=== PATIENT | female | born 1985 | race Caucasian/White ===

== ENCOUNTER 2019-11-12 05:31 | Outpatient (RCR) | payer OTHER ==
[~2019-11-12] VITALS: Ht 162.6 cm; Wt 88.2 kg
[~2019-11-12 05:31] MED LIST: ALPR0.25 PO
--- NOTE | 2019-11-12 09:26 | Progress Note-Pre Operative ---
Pre-Operative Progress Note H&P Reviewed The H&P was reviewed, patient examined and no changes noted. Date Seen by Provider: Nov 15, 2019 Date H&P Reviewed: Nov 15, 2019 Pre-Operative Diagnosis: uterovaginal prolapse/aileen ELIJAH CHEATHAM MD Nov 12, 2019 09:26
--- NOTE | 2019-11-12 09:27 | Progress Note-Post Operative ---
Post-Operative Progess Note Surgeon (s)/Sample Driller (s) Surgeon ELIJAH CHEATHAM MD Pre-Operative Diagnosis uterovaginal prolapse/aileen Post-Operative Diagnosis same Procedure & Operative Findings Date of Procedure 11/12/19 Procedure Performed/Findings TLH/BS/A&P rep with ent rep/(PVS and cysto by Dr. Corral) Anesthesia Type GETA Specimens/Packing Specimens Removed TLH/BS Packing: Kerlix in vagina ELIJAH CHEATHAM MD Nov 12, 2019 09:27
== END 2019-11-12 14:25 | disposition home or self-care (01) ==
LOC: PREOP 05:31
PROVIDERS: ATTEND Obstetrics & Gynecology
DX: Z01.818 Encounter for other preprocedural examination (principal); N39.3 Stress incontinence (female) (male); N92.0 Excessive and frequent menstruation with regular cycle; D64.9 Anemia, unspecified; Z20.828 Contact with and (suspected) exposure to other viral communicable diseases
CPT/HCPCS: 87635

== ENCOUNTER 2019-11-15 09:35 | Day surgery (SDC) | payer OTHER ==
[~2019-11-15] VITALS: Ht 162.6 cm; Wt 88.2 kg
[2019-11-15] VITALS (9 sets, daily range): BP systolic 107–124; BP diastolic 54–87
[2019-11-15] MEDS ORDERED: ceFAZolin INJECTION 1,000 MG in WATER (STERILE) FOR INJECTION 10 ML IV ONE (10:00)
[2019-11-15] MEDS: LACTATED RINGERS 1,000 ML IV PRN ×2 (10:12→14:15)
[2019-11-15 10:22] LABS: BASOPHILS % (AUTO) 0 % (0-10); EOSINOPHILS # (AUTO) 0.1 10^3/uL (0.0-0.3); EOSINOPHILS % (AUTO) 1 % (0-10); HEMATOCRIT 41 % (35-52); LYMPHOCYTES # (AUTO) 2.2 X 10^3 (1.0-4.0); LYMPHOCYTES % (AUTO) 24 % (12-44); MEAN CORPUSCULAR HEMOGLOBIN 30 PG (25-34); MEAN CORPUSCULAR HGB CONC 34 G/DL (32-36); MEAN CORPUSCULAR VOLUME 89 FL (80-99); MEAN PLATELET VOLUME 9.8 FL (7.4-10.4); MONOCYTES # (AUTO) 0.7 X 10^3 (0.0-1.0); MONOCYTES % (AUTO) 8 % (0-12); NEUTROPHILS # (AUTO) 6.2 X 10^3 (1.8-7.8); NEUTROPHILS % (AUTO) 67 % (42-75); PLATELET COUNT 288 10^3/uL (130-400); WHITE BLOOD COUNT 9.2 10^3/uL (4.3-11.0)
[2019-11-15] MEDS ORDERED: ROCURONIUM 10 MG/ML 5 ML SYRINGE IV ONE (10:26)
[2019-11-15] MEDS ORDERED: SEVOFLURANE (ULTANE) 15 ML INHAL SOLN ONE ×7 (10:26→14:43)
[2019-11-15] MEDS ORDERED: LIDOCAINE PF 2% 5 ML (XYLOCAINE) VIAL ONE (10:26)
[2019-11-15] MEDS ORDERED: proPOfol 200 MG/20 ML (DIPRIVAN) VIAL IV ONE (10:26)
[2019-11-15] MEDS ORDERED: ONDANSETRON 4 MG/2 ML (SDV) Z0FRAN ONE (10:26)
[2019-11-15] MEDS ORDERED: MIDAZOLAM 2 MG/2 ML (VERSED) VIAL ONE (10:27)
[2019-11-15] MEDS ORDERED: fentaNYL INJECTION 100 MCG/2 ML AMP ONE (10:27)
[2019-11-15] MEDS ORDERED: NEOSTIGMINE 3 MG/3 ML VIAL ONE ×6 (10:28→10:34)
[2019-11-15] MEDS ORDERED: GLYCOPYRROLATE 0.2 MG/ML (ROBINUL) 2 ML VIAL ONE (10:28)
[2019-11-15] MEDS ORDERED: CATHETER FLUSH 10 ML SYR IV PRN (10:30)
[2019-11-15] MEDS ORDERED: ESTRADIOL VAGINAL CREAM 42.5 GM (ESTRACE) VG ONE (10:51)
[2019-11-15] MEDS ORDERED: BUP/EPI 0.5% 1:200,000 (MARCAINE) 10ML VIAL IJ ONE (10:52)
--- NOTE | 2019-11-15 12:48 | Progress Note-Pre Operative ---
Pre-Operative Progress Note H&P Reviewed The H&P was reviewed, patient examined and no changes noted. Date Seen by Provider: Nov 15, 2019 Time Seen by Provider: 12:48 Date H&P Reviewed: Nov 15, 2019 Time H&P Reviewed: 12:48 Pre-Operative Diagnosis: BENEDICTO RAZO MD Nov 15, 2019 12:48
--- NOTE | 2019-11-15 12:49 | Progress Note-Post Operative ---
Post-Operative Progess Note Surgeon (s)/Insulation Cupola Operator (s) Surgeon BENEDICTO ABAD MD Insulation Cupola Operator: ELIJAH CHEATHAM M.D Pre-Operative Diagnosis JULI Post-Operative Diagnosis SAME Procedure & Operative Findings Date of Procedure 11/15/19 Procedure Performed/Findings PVS AND CYSTOSCOPY Anesthesia Type GENERAL Estimated Blood Loss Estimated blood loss (mL): NEGLIGIBLE Specimens/Packing Specimens Removed NONE Packing: NONE BENEDICTO ABAD MD Nov 15, 2019 12:49
--- NOTE | 2019-11-15 13:15 | Progress Note-Pre Operative ---
Pre-Operative Progress Note H&P Reviewed The H&P was reviewed, patient examined and no changes noted. Date Seen by Provider: Nov 15, 2019 Time Seen by Provider: 13:14 Date H&P Reviewed: Nov 15, 2019 Time H&P Reviewed: 13:14 Pre-Operative Diagnosis: uTEROVAGINAL PROLAPSE/JULI ELIJAH CHEATHAM MD Nov 15, 2019 13:15
[2019-11-15] MEDS ORDERED: D5 LR IV SOLUTION 1,000 ML IV SCH (13:16)
--- NOTE | 2019-11-15 13:16 | Progress Note-Post Operative ---
Post-Operative Progess Note Surgeon (s)/Cream Buyer (s) Surgeon ELIJAH CHEATHAM MD Cream Buyer: ISIDRO DOS SANTOS Pre-Operative Diagnosis UTEROVAGINAL PROLAPSE/JULI Post-Operative Diagnosis SAME Procedure & Operative Findings Date of Procedure 11/15/19 Procedure Performed/Findings TLH/BS/A&P REP WITH ENT REP AND PVS / CYSTO BY POLLO PARKER Anesthesia Type GETA Estimated Blood Loss Estimated blood loss (mL): 150 Specimens/Packing Specimens Removed tlh/bs Packing: ELIJAH Matta MD Nov 15, 2019 13:16
[2019-11-15] MEDS ORDERED: oxyCODONE/APAP 5/325MG (PERCOCET 5) TABLET PO PRN (13:30)
[2019-11-15] MEDS ORDERED: MEPERIDINE (DEMEROL) INJ 100 MG/ML IM PRN ×2 (13:30→15:30)
[2019-11-15] MEDS ORDERED: ONDANSETRON 4 MG/2 ML (SDV) Z0FRAN IVP PRN ×2 (13:30→15:30)
[2019-11-15] MEDS ORDERED: KETOROLAC 30 MG/ML VIAL IVP SCH (13:30)
[2019-11-15] MEDS ORDERED: BENZOCAINE/MENTHOL (DERMOPLAST) 60 ML CAN TP PRN ×2 (13:30→15:30)
[2019-11-15] MEDS ORDERED: PROMETHAZINE INJ 25 MG/ML (PHENERGAN) AMP IM PRN ×2 (13:30→15:30)
[2019-11-15] MEDS ORDERED: ESTROGENS CONJ INJECTION 25 MG in WATER (STERILE) FOR INJECTION 5 ML IV ONE ×2 (13:30→15:30)
[2019-11-15] MEDS ORDERED: HYDROmorphone 2 MG/ML VIAL (DILAUDID) ONE (14:20)
--- NOTE | 2019-11-15 15:38 | OPERATIVE REPORT ---
DATE OF SERVICE: 11/15/2019 PREOPERATIVE DIAGNOSIS: Uterovaginal prolapse. POSTOPERATIVE DIAGNOSIS: Uterovaginal prolapse. OPERATIVE PROCEDURE: Total laparoscopic hysterectomy with bilateral salpingectomies as well as anterior and posterior vaginal repairs with enterocele repair and with Dr. Corral performing a pubovaginal sling and cystoscopy. OPERATIVE DESCRIPTION: With the patient in supine position under satisfactory general anesthesia, she was repositioned in dorsal lithotomy position in the [facility] and prepped and draped in the usual fashion for abdominal and vaginal surgery. Urinary bladder was drained via Munoz catheter. A weighted speculum placed in posterior fornix of vagina, cervix exposed and grasped anteriorly with single tooth tenaculum. Uterus was sounded to 9.5 cm with uterine sound. Cervix was then serially dilated with Harry dilators to accommodate a ThinkLink two manipulator, which was placed using a 6 mm x 8 cm uterine probe and a 30 mm colpotomy ring. Sutures of #1 Vicryl placed at 3 and 9 o'clock position of the cervix to affix the uterus to the manipulator. The patient brought in low dorsal lithotomy position and the abdomen exposed. A 12 mm incision was made 9 cm superior to the umbilicus in the midline. Veress needle was placed through the incision into the abdominal cavity. Correct placement confirmed with water drop test. The abdomen was insufflated with 2.4 liters of carbon dioxide. The Veress needle was removed and a 12 mm Optiview laparoscopic port placed. Abdominal wall was transilluminated and 8 mm ports were placed 9 cm lateral to the umbilicus at a level approximately 4 cm superior to the umbilicus. The patient was placed in Trendelenburg allowing the bowel to spill out of the pelvis and then the da Juan J column was advanced on the patient and docked and operative instrument placed in right and left lateral ports and I retired to the da Juan J console. At the console using the vessel sealer on the right and a bipolar fenestrated grasper on the left, the pelvis was examined. Both ovaries were normal in appearance as were the fallopian tubes. The uterus had an atypical appearance, but it will be sent to pathology for permanent section. The appendix was identified. It was retrocecal, but appeared normal. The laparoscope was brought back to the pelvis. The right fallopian tube was grasped and elevated. The mesosalpinx was clamped, cauterized and divided using the vessel sealer. This continued across to the uteroovarian pedicle, which was clamped, cauterized and divided. Continue across the round ligament down the broad ligament onto the cardinal ligament. Same procedure performed on the left, allowing for removal of both fallopian tubes eventually with the uterus. With the anterior lower uterine segment peritoneum exposed, it was divided with monopolar audrey in place of the vessel sealer. The bladder was carefully dissected down off the lower uterine segment and then colpotomy incision was initiated at 12 o'clock position onto the colpotomy ring. The colpotomy ring was exposed circumferentially. It was completely exposed. The uterus with tubes still attached was extracted through the vagina. The vaginal cuff was now closed with a single suture of V-Loc barbed suture starting from the right angle and continuing across the vaginal cuff until the cuff was entirely closed, taking care to ensure inclusion of the uterine vessel pedicles bilaterally. With hemostasis complete and no abnormal pathology, both ovaries in situ and appeared normal. Both ureters had been seemed to before and during the procedure and again at this point, the procedure was terminated. The patient had the operative instruments were removed as were the ports. The abdomen was evacuated of insufflating gas in process of removing the ports. The skin incisions were stapled after closing the fascia at the supraumbilical incision with a [id number] suture of 2-0 Vicryl. The patient was brought into the dorsal lithotomy position for the anterior and posterior vaginal repairs. Weighted speculum placed in posterior fornix of vagina. The anterior wall was grasped with two Eve clamps. Incision was made in the midline. Then the incision was extended from approximately 1.5 cm of the urethra almost to the apex of the vagina. The vaginal wall was carefully dissected off of the bladder back to pubic rami bilaterally. Endopelvic fascia and bladder wall were then plicated with 2-0 Vicryl sutures, elevating the bladder and lengthening the urethra. Dr. Corral assumed care of the patient at this point and I remained to assist. Dr. Corral performed the pubovaginal sling and cystoscopy without event, which he will dictate and then I resumed care of the patient. With Dr. Corral portion completed and a Munoz catheter in the urinary bladder draining clear yellow urine, I resected the redundant anterior vaginal muscularis mucosa and closed the vaginal wall with a running locked suture of 3-0 Vicryl Rapide. Good reapproximation was achieved and good hemostasis was achieved. Posterior repair was then affected by placing Eve clamps on the perineum and hymenal ring at 5 and 7 o'clock position and inverted triangle of skin was removed from the perineal body and upright triangle from the posterior vaginal floor. The rectovaginal space was dissected to the apex of the vagina where it was explored for an enterocele there being a small and it was reduced and ligated with two 2-0 Vicryl pursestring sutures. The rectovaginal space was obliterated with additional sutures of 2-0 Vicryl. The perineal body was restored with additional sutures of 2-0 Vicryl and then the posterior vaginal muscularis mucosa was removed sharply. Vaginal wall was closed with a running locked suture of 3-0 Vicryl Rapide, that closure was continued down to the hymenal ring and back down to the apex of the defect on the perineal body then back up subcutaneous to the hymenal ring where the suture was tied. Digital rectal exam confirmed no stricture or stenosis of the rectum and no sutures into or through the rectal mucosa. Vagina was filled with Estrace vaginal cream and a pack of Kerlix gauze was placed. Hemostasis was complete. Sponge and needle counts were correct. Estimated blood loss was around 250 to 300 mL. The patient tolerated the procedure well and was uneventfully awakened from the general anesthesia and transferred to recovery room in stable condition. Job ID: [id number] DocumentID: [id number] Dictated Date: 11/15/2019 15:16:01 Pumper Hand Date: 11/15/2019 15:37:52 Dictated By: ELIJAH CHEATHAM MD
[2019-11-15] MEDS ORDERED: KETOROLAC 30 MG/ML VIAL ONE (15:40)
[2019-11-15] MEDS: KETOROLAC 30 MG/ML VIAL IVP SCH ×2 (15:45→21:25)
[2019-11-15] MEDS ORDERED: OXYC1TAB87 PO (15:46)
[2019-11-15] MEDS ORDERED: DCS100C PO (15:46)
[2019-11-15] MEDS ORDERED: IBUP-1780 PO (15:46)
--- NOTE | 2019-11-15 15:47 | Discharge Inst-Surgical ---
Discharge Inst-Surgical Depart Medication/Instructions New, Converted or Re-Newed RX: RX on Chart Consults/Follow Up Patient Instructions: DIRECTED Orders & Referrals Follow Up Appt: RTC ON MONDAY NOVEMBER 18, 2019 AT 930 AM FOR STAPLE REMOVAL Call to make follow up appt. for patient in 4 weeks. Activity: Rest for 24 hours, than as tolerated. Wound Care: May remove Band-Aid tomorrow. Replace as desired. Keep incisions clean and dry. Wash daily with soap and water. Please call in RX to patient pharmacy. Diet: As tolerated-Clear Liquids only if nauseated. Tomorrow, may shower or tub bathe as desired. No driving for 24 hours, no alcoholic beverages for 24 hours, and nothing per vagina (no tampons, douching, or intercourse) for 8 weeks. Patient to return to the clinic as soon as possible for: Temperature greater than 101F, Severe Pain, Foul discharge from incision or vagina, Excessive Bleeding (more than a period). Activity Activity as Tolerated: No Diet Discharge Diet: No Restrictions ELIJAH CHEATHAM MD Nov 15, 2019 15:47
--- NOTE | 2019-11-15 16:25 | NUR ---
SHER THOMPSON admitted to room 306, with an admitting diagnosis of postop hysterectomy, on 11-15-19 from recovery via cart, accompanied by staff.SHER THOMPSON introduced to surroundings, call light, bed controls, phone, TV, temperature control, lights, meal times, smoking policy, visitor policy, side rail policy, bathrooms and showers. Patient Rights given to patient in the handbook. SHER THOMPSON verbalizes understanding that [facility] is not responsible for the loss or damage to any personal effects or valuables that are kept in the patients posession during their hospitalization. The following Patient Care Plans were discussed with the patient: Discharge Planning, pain management, postop care. SHER THOMPSON verbalizes understanding of Interdisciplinary Patient Education. Patient and/or family were informed about the Rapid Response Team and its purpose.
[2019-11-15] MEDS ORDERED: MEPERIDINE (DEMEROL) INJ 100 MG/ML ONE (16:45)
[2019-11-15] MEDS ORDERED: PROMETHAZINE INJ 25 MG/ML (PHENERGAN) AMP ONE (16:45)
[2019-11-15] MEDS: D5 LR IV SOLUTION 1,000 ML IV SCH (16:56)
--- NOTE | 2019-11-15 19:23 | OPERATIVE REPORT ---
DATE OF SERVICE: 11/15/2019 PREOPERATIVE DIAGNOSIS: On my part, stress urinary incontinence. POSTOPERATIVE DIAGNOSIS: On my part, stress urinary incontinence. OPERATION PERFORMED: Pubovaginal sling and cystoscopy. SURGEON: Benedicto Abad MD ANESTHESIA: General. STATEMENT DISTRIBUTION CLERK: Huseyin Argueta MD COMPLICATIONS: None. DESCRIPTION OF PROCEDURE: After Dr. Argueta performed the first part of his surgery, I went ahead and inserted a Munoz catheter, draining clear urine. I passed the Solyx device on both sides using the described technique. The sling was sitting nicely under the mid urethra with no twisting, no tension. I removed the Munoz catheter to perform cystoscopy to confirm the integrity of the bladder, ureteral orifices and urethra with no foreign body and presence of the sling under the mid urethra. I left the bladder half full to perform a manual Valsalva maneuver that was negative. I reinserted the Munoz catheter and Dr. Argueta procedure was the rest of his surgery that he will dictate. Job ID: [id number] DocumentID: [id number] Dictated Date: 11/15/2019 14:48:15 Enrichment Specialist Date: 11/15/2019 19:22:34 Dictated By: BENEDICTO ABAD MD
[2019-11-15] MEDS: oxyCODONE/APAP 5/325MG (PERCOCET 5) TABLET PO PRN (21:25)
[2019-11-16 00:30] VITALS: BP 107/58
[2019-11-16] MEDS: D5 LR IV SOLUTION 1,000 ML IV SCH (00:40)
[2019-11-16 03:32] VITALS: BP 105/54
[2019-11-16] MEDS: KETOROLAC 30 MG/ML VIAL IVP SCH (03:34)
--- NOTE | 2019-11-16 06:20 | NUR ---
IV, CHEEK CATH, and vag packing removed at this time. Pt. up to bathroom with nurse assist. Pad and underwear put on. Unable to void at this time. Pt. tolerates well. Denies the need for pain meds at this time. Back to bed. SCD's put back on.
[2019-11-16 06:29] VITALS: BP 118/64
--- NOTE | 2019-11-16 08:25 | NUR ---
dr nation here for patient rounds and assessments. new orders received.
[2019-11-16 08:50] VITALS: BP 131/65
--- NOTE | 2019-11-16 08:51 | Progress Note ---
Standard Progress Note Progress Notes/Assess & Plan Date Seen by a Provider: Nov 16, 2019 Time Seen by a Provider: 08:49 Progress/Assessment & Plan This patient is without complaint. She is ambulating, tolerating oral intake, she has not voided yet, she does have good pain control. Vital Signs Date Time Temp Pulse Resp B/P (MAP) Pulse Ox O2 Delivery O2 Flow Rate FiO2 11/16/19 06:29 36.9 67 20 118/64 (82) 94 Room Air 11/16/19 03:32 36.9 91 18 105/54 (71) 94 Room Air 11/16/19 00:30 37.4 79 16 107/58 (74) 94 Nasal Cannula 1.00 11/15/19 21:38 95 Nasal Cannula 1.00 11/15/19 20:00 36.6 101 16 107/54 (71) 94 Nasal Cannula 2.00 11/15/19 18:00 Room Air 11/15/19 16:50 93 Nasal Cannula 2.00 11/15/19 16:25 36.4 88 16 114/60 (78) 93 Nasal Cannula 2.00 11/15/19 16:25 Nasal Cannula 2 11/15/19 16:17 18 119/72 (88) 100 Nasal Cannula 2 11/15/19 16:15 Nasal Cannula 2 11/15/19 16:08 36.2 21 123/75 (91) 97 Room Air 11/15/19 16:00 OxyMask 10 11/15/19 15:58 20 113/73 (86) 98 OxyMask 10 11/15/19 15:48 12 111/87 (95) 99 OxyMask 10 11/15/19 15:45 OxyMask 10 11/15/19 15:38 18 118/69 (85) 98 OxyMask 10 11/15/19 15:28 36.2 14 121/84 (96) 99 OxyMask 10 11/15/19 15:28 OxyMask 10 11/15/19 09:43 36.1 92 16 124/69 (87) 96 Room Air I & O 11/16/19 07:00 Intake Total 3860 ml Output Total 2075 ml Balance 1785 ml Vital signs are stable. Patient is afebrile. The abdomen is benign. Extremities show no clubbing or cyanosis. There is no Homans sign. Assessment and plan postoperative day number 1 doing well. Plan is for routine convalescence care. When patient demonstrates adequate bladder function she will be discharged home. Bladder is not adequately functioning management will depend on Dr. Knight's instruction Final Diagnosis Uterovaginal prolapse and stress urinary incontinence ELIJAH CHEATHAM MD Nov 16, 2019 08:50
[2019-11-16] MEDS ORDERED: DOCUSATE SODIUM 100 MG (COLACE) CAP PO SCH ×2 (09:00)
[2019-11-16] MEDS: oxyCODONE/APAP 5/325MG (PERCOCET 5) TABLET PO PRN (09:05)
--- NOTE | 2019-11-16 09:10 | NUR ---
spontaneous void of 310cc of vamshi colored urine, bladder scan at bedside by this RN. 104 cc of urine scanned in bladder.
--- NOTE | 2019-11-16 10:20 | NUR ---
dr lopez given patient update on urine output, pain management and vitals. reviewed bladder scan results. d/c precautions and followup time given to this RN by dr lopez.
--- NOTE | 2019-11-16 11:10 | NUR ---
SHER THOMPSON demonstrates understanding of discharge instructions and accurately returns instructions upon questioning. Copy of Post-Discharge Instructions and Medication Discharge Instructions given to . SHER THOMPSON is able to manage continuing needs after discharge. Patients belongings returned to patient. Skin dry and intact; no breakdown noted. Patient discharged from 3306-1 on 11-16-19 at 1110. SHER THOMPSON left floor via w/c, accompanied by staff and s/o.
[2019-11-16] MEDS ORDERED: IBUPROFEN 800 MG (MOTRIN) TAB PO SCH ×2 (15:30→18:00)
--- NOTE | 2019-11-17 10:22 | Anesthesia-General Post-Op ---
General Significant Intra-Op Events Notes late entry from 11/15 Patient Condition Mental Status/LOC: Same as Preop Cardiovascular: Satisfactory Nausea/Vomiting: Absent Respiratory: Satisfactory Pain: Controlled Complications: Absent Post Op Complications Complications None Follow Up Care/Instructions Patient Instructions None needed. Anesthesia/Patient Condition Patient Condition Patient is doing well, no complaints, stable vital signs, no apparent adverse anesthesia problems. No complications reported per nursing. MARY WHITLOCK CRNA Nov 17, 2019 10:22
== END 2019-11-16 11:10 | disposition home or self-care (01) ==
LOC: SDC 09:35 → EDSTATUS 12:00 → WS 16:22 → SDC 11-16 11:10
PROVIDERS: ATTEND Obstetrics & Gynecology
DX: N81.4 Uterovaginal prolapse, unspecified (principal); N80.0 Endometriosis of uterus; N39.3 Stress incontinence (female) (male); N72 Inflammatory disease of cervix uteri; N87.0 Mild cervical dysplasia; F41.9 Anxiety disorder, unspecified; Z79.899 Other long term (current) drug therapy; E66.9 Obesity, unspecified; Z68.33 Body mass index [BMI] 33.0-33.9, adult; Z11.2 Encounter for screening for other bacterial diseases
CPT/HCPCS: 57265; 57288; 58571; 84703; 85025; 86850; 86900; 86901; 87081; 88307; 94664; C1771; 36415

== ENCOUNTER 2020-03-11 16:32 | Inpatient (IN) | payer OTHER ==
[~2020-03-11] VITALS: Ht 162.5 cm; Wt 90.7 kg
[~2020-03-11 16:32] MED LIST changes: +DCS100C PO; +IBUP-1780 PO; +OXYC1TAB87 PO
[2020-03-11] MEDS ORDERED: ONDANSETRON 4 MG/2 ML (SDV) Z0FRAN ONE (16:43)
[2020-03-11] MEDS ORDERED: LACTATED RINGERS 1,000 ML IV ONE (17:06)
[2020-03-11 17:15] LABS: BASOPHILS % (AUTO) 0 % (0-10); EOSINOPHILS % (AUTO) 0 % (0-10); HEMATOCRIT 42 % (35-52); LYMPHOCYTES # (AUTO) 1.2 10^3/uL (1.0-4.0); LYMPHOCYTES % (AUTO) 22 % (12-44); MEAN CORPUSCULAR HEMOGLOBIN 29 pg (25-34); MEAN CORPUSCULAR HGB CONC 33 g/dL (32-36); MEAN CORPUSCULAR VOLUME 87 fL (80-99); MEAN PLATELET VOLUME 9.8 fL (9.0-12.2); MONOCYTES # (AUTO) 0.4 10^3/uL (0.0-1.0); MONOCYTES % (AUTO) 7 % (0-12); NEUTROPHILS # (AUTO) 3.9 10^3/uL (1.8-7.8); NEUTROPHILS % (AUTO) 71 % (42-75); PLATELET COUNT 236 10^3/uL (130-400); WHITE BLOOD COUNT 5.5 10^3/uL (4.3-11.0)
[2020-03-11] MEDS ORDERED: ONDANSETRON 4 MG/2 ML (SDV) Z0FRAN IVP ONE (17:15)
[2020-03-11] MEDS ORDERED: KETOROLAC 30 MG/ML VIAL IVP ONE (17:15)
--- NOTE | 2020-03-11 17:15 | ED Respiratory ---
General Stated Complaint: SOA, VOMITING, CHILLS, HEADACHE, COUGH Source: patient Exam Limitations: no limitations History of Present Illness Date Seen by Provider: Mar 11, 2020 Time Seen by Provider: 16:45 Initial Comments The patient presents to the ER by private conveyance with chief complaint that today she started having nausea vomiting diarrhea shortness of air fever subjectively. She has not had any NSAIDs and no anti-emetics. She has an ICU nurse with multiple exposures. She has no history of lung disease COPD or asthma. Never a smoker. No recreational drugs or alcohol use. She has had a hysterectomy related to her uterine prolapse but no other surgeries. Gen. body aches and abdominal discomfort. No history of IBS IBD or diverticulitis. No blood in the stool. History of anxiety. Allergies and Home Medications Allergies Coded Allergies: sumatriptan (Verified Allergy, Unknown, Anaphylaxis, 11/07/19) Home Medications Alprazolam 0.25 Mg Tablet, 0.25 MG PO Q8H PRN for ANXIETY, (Reported) Docusate Sodium 100 Mg Capsule, 100 MG PO BID Prescribed by: ELIJAH CHICAS on 11/15/19 154 Ibuprofen 800 Mg Tablet, 800 MG PO Q6HR Prescribed by: ELIJAH CHICAS on 11/15/19 1546 Oxycodone HCl/Acetaminophen 1 Each Tablet, 1 TAB PO Q4H PRN for PAIN-MODERATE (5-7) Prescribed by: ELIJAH CHICAS on 11/15/19 1546 Patient Home Medication List Home Medication List Reviewed: Yes Review of Systems Review of Systems Constitutional: No chills, No diaphoresis EENTM: No ear discharge, No ear pain Respiratory: cough, phlegm (scant amount of yellow clear), short of breath; No wheezing Cardiovascular: No chest pain, No palpitations Gastrointestinal: No abdominal pain, No constipation; diarrhea, nausea, vomiting Genitourinary: No discharge, No dysuria Musculoskeletal: No back pain, No joint pain Psychiatric/Neurological: Denies Anxiety, Denies Depressed All Other Systems Reviewed Negative Unless Noted: Yes Past Eqiiwhu-Bmprek-Nmsgeo Hx Patient Social History Alcohol Use: Denies Use Recreational Drug Use: No Smoking Status: Never a Smoker Recent Foreign Travel: No Contact w/Someone Who Travel: No Recent Hopitalizations: No Seasonal Allergies Seasonal Allergies: No Past Medical History Surgeries: Yes (D&C) Respiratory: No Cardiac: No Neurological: No Genitourinary: Yes Gastrointestinal: No Musculoskeletal: No Endocrine: No HEENT: No Cancer: No Psychosocial: Yes Anxiety Integumentary: No Blood Disorders: No Family Medical History Cardiovascular disease 19 MOTHER Diabetes mellitus 19 MOTHER G8 BROTHER Hypertension 19 FATHER 19 MOTHER Physical Exam Capillary Refill : Height: 5'4" Weight: 140lbs. oz. 63.276156ec; 33.36 BMI Method:Stated General Appearance: WD/WN, moderate distress Eyes: Bilateral Eye Normal Inspection, Bilateral Eye PERRL, Bilateral Eye EOMI HEENT: PERRL/EOMI, pharynx normal Neck: full range of motion, supple, normal inspection Respiratory: lungs clear, normal breath sounds, no accessory muscle use, respiratory distress (88% on room air with mild tachypnea in the 20s) Cardiovascular: normal peripheral pulses, regular rate, rhythm, no edema Neurologic/Psychiatric: no motor/sensory deficits, alert, normal mood/affect, oriented x 3 Skin: normal color, diaphoresis Focused Exam Sepsis Stage: Sepsis Possible Source: Pulmonary Lactate Level 03/11/20 16:50: Lactic Acid Level 1.66 Time of Focused Exam: 17:55 Respiratory: Lungs Clear, Normal Breath Sounds, No Accessory Muscle Use, Respiratory Distress (satting 95% on 4 L by nasal cannula) Cardiovascular: Regular Rate, Rhythm, No Edema, Normal Peripheral Pulses Capillary Refill: Less Than 3 Seconds Peripheral Pulses: 2+ Radial Pulses (R), 2+ Radial Pulses (L) Skin: normal color, warm/dry Lactic Acid Level Laboratory Tests Test 03/11/20 16:50 Lactic Acid Level 1.66 MMOL/L (0.50-2.00) Within 3hrs of presentation: Admin fluids (attenuated fluids secondary to COVID-19 diagnoses), Admin ABX, Blood cultures prior to ABX's, Focus exam, Lacta te level Progress/Results/Core Measures Suspected Sepsis SIRS Temperature: Pulse: Respiratory Rate: Laboratory Tests 03/11/20 16:50: White Blood Count 5.5 Blood Pressure / Mean: 03/11/20 16:50: Lactic Acid Level 1.66 Laboratory Tests 03/11/20 16:50: Creatinine 0.94, INR Comment 1.0, Platelet Count 236, Total Bilirubin 0.6 Results/Orders Lab Results Laboratory Tests Test 03/11/20 16:50 03/11/20 16:55 03/11/20 17:16 Range/Units White Blood Count 5.5 4.3-11.0 10^3/uL Red Blood Count 4.81 3.80-5.11 10^6/uL Hemoglobin 14.0 11.5-16.0 g/dL Hematocrit 42 35-52 % Mean Corpuscular Volume 87 80-99 fL Mean Corpuscular Hemoglobin 29 25-34 pg Mean Corpuscular Hemoglobin Concent 33 32-36 g/dL Red Cell Distribution Width 11.9 10.0-14.5 % Platelet Count 236 130-400 10^3/uL Mean Platelet Volume 9.8 9.0-12.2 fL Immature Granulocyte % (Auto) 0 % Neutrophils (%) (Auto) 71 42-75 % Lymphocytes (%) (Auto) 22 12-44 % Monocytes (%) (Auto) 7 0-12 % Eosinophils (%) (Auto) 0 0-10 % Basophils (%) (Auto) 0 0-10 % Neutrophils # (Auto) 3.9 1.8-7.8 10^3/uL Lymphocytes # (Auto) 1.2 1.0-4.0 10^3/uL Monocytes # (Auto) 0.4 0.0-1.0 10^3/uL Eosinophils # (Auto) 0.0 0.0-0.3 10^3/uL Basophils # (Auto) 0.0 0.0-0.1 10^3/uL Immature Granulocyte # (Auto) 0.0 0.0-0.1 10^3/uL Prothrombin Time 13.1 12.2-14.7 SEC INR Comment 1.0 0.8-1.4 Activated Partial Thromboplast Time 32 24-35 SEC D-Dimer 0.76 H 0.00-0.49 UG/ML Sodium Level 136 135-145 MMOL/L Potassium Level 3.0 L 3.6-5.0 MMOL/L Chloride Level 97 L 98-107 MMOL/L Carbon Dioxide Level 28 21-32 MMOL/L Anion Gap 11 5-14 MMOL/L Blood Urea Nitrogen 7 7-18 MG/DL Creatinine 0.94 0.60-1.30 MG/DL Estimat Glomerular Filtration Rate > 60 BUN/Creatinine Ratio 7 Glucose Level 106 H 70-105 MG/DL Lactic Acid Level 1.66 0.50-2.00 MMOL/L Calcium Level 9.2 8.5-10.1 MG/DL Corrected Calcium 9.0 8.5-10.1 MG/DL Phosphorus Level 2.8 2.3-4.7 MG/DL Magnesium Level 1.7 1.6-2.4 MG/DL Total Bilirubin 0.6 0.1-1.0 MG/DL Aspartate Amino Transf (AST/SGOT) 25 5-34 U/L Alanine Aminotransferase (ALT/SGPT) 24 0-55 U/L Alkaline Phosphatase 70 40-136 U/L C-Reactive Protein High Sensitivity 9.30 H 0.00-0.50 MG/DL Total Protein 7.9 6.4-8.2 GM/DL Albumin 4.2 3.2-4.5 GM/DL Serum Test, Qualitative NEGATIVE NEGATIVE Blood Gas Puncture Site RR Blood Gas Patient Temperature 102.0 Arterial Blood pH 7.43 7.37-7.43 Arterial Blood Partial Pressure CO2 38 35-45 MMHG Arterial Blood Partial Pressure O2 92 79-93 MMHG Arterial Blood HCO3 25 23-27 MMOL/L Arterial Blood Total CO2 25.6 21.0-31.0 MMOL/L Arterial Blood Oxygen Saturation 96 94-100 % Arterial Blood Base Excess 1.0 -2.5-2.5 MMOL/L Louis Test YES-POS Blood Gas Ventilator Setting NO Blood Gas Inspired Oxygen 4L Coronavirus 2019 (JORDY) Positive H Negative Micro Results Microbiology 03/11/20 Influenza Types A,B Antigen (PAULINA) - Final, Complete My Orders Orders - MADYSON CID Ondansetron Injection (Zofran Injectio (03/11/20 16:43) Arterial Blood Gas (03/11/20 17:05) Ondansetron Injection (Zofran Injectio (03/11/20 17:15) Ketorolac Injection (Toradol Injection) (03/11/20 17:15) Dexamethasone Injection (Decadron Injec (03/11/20 17:15) Cbc With Automated Diff (03/11/20 17:06) Comprehensive Metabolic Panel (03/11/20 17:06) Blood Culture (03/11/20 17:06) Sputum Culture (03/11/20 17:06) Urinalysis (03/11/20 17:06) Urine Culture (03/11/20 17:06) Protime With Inr (03/11/20 17:06) Partial Thromboplastin Time (03/11/20 17:06) Chest 1 View, Ap/Pa Only (03/11/20 17:06) Ed Iv/Invasive Line Start (03/11/20 17:06) Ed Iv/Invasive Line Start (03/11/20 17:06) Vital Signs Adult Sepsis Patie Q15M (03/11/20 17:06) O2 (03/11/20 17:06) Remove Rings In Anticipation O (03/11/20 17:06) Lactic Acid Analyzer (03/11/20 17:06) Influenza A And B Antigens (03/11/20 17:06) Lactated Ringers (Lr 1000 Ml Iv Solution (03/11/20 17:06) Fibrin Degradation Products (03/11/20 17:06) Procalcitonin (Pct) (03/11/20 17:06) Hs C Reactive Protein (03/11/20 17:06) Hcg,Qualitative Serum (03/11/20 17:06) Magnesium (03/11/20 17:08) Phosphorus (03/11/20 17:09) Covid 19 Inhouse Test (03/11/20 17:16) Famotidine Injection (Pepcid Injection) (03/11/20 17:30) Oseltamivir 75 Mg Capsule (Tamiflu 75 (03/11/20 17:45) Medications Given in ED Current Medications Medications Dose Ordered Sig/Michell Route Start Time Stop Time Status Last Admin Dose Admin Dexamethasone Sodium Phosphate 6 mg ONCE ONCE IV 03/11/20 17:15 03/11/20 17:16 DC 03/11/20 17:21 6 MG Famotidine 20 mg ONCE ONCE IVP 03/11/20 17:30 03/11/20 17:31 DC 03/11/20 17:27 20 MG Ketorolac Tromethamine 30 mg ONCE ONCE IVP 03/11/20 17:15 03/11/20 17:16 DC 03/11/20 17:13 30 MG Lactated Ringer's 1,000 ml @ 0 mls/hr Q0M ONCE IV 03/11/20 17:06 03/11/20 17:09 DC 03/11/20 17:14 1,000 MLS/HR Vital Signs/I&O Capillary Refill : Progress Note : Time: 17:13 Progress Note Patient presents with symptoms similar to COVID-19. Zofran 4 mg was given which halted her nausea and vomiting. We'll give her a liter of lactated Ringer's start and do a septic workup. We are holding off on antibiotics because of the suspicion for COVID 19. Plan to do a rapid COVID 19 and influenza screen. Toradol for her fever and body aches. We will then reassess. Diagnostic Imaging Diagonstic Imaging: Xray Plain Films/CT/US/NM/MRI: chest Comments NAME: SHER THOMPSON [facility] REC#: [id number] PT STATUS: REG ER : 1985 PHYSICIAN: MADYSON CID MD ADMIT DATE: 03/11/20/ER Draft Date of Exam:03/11/20 CHEST 1 VIEW, AP/PA ONLY EXAMINATION: Chest 1 view. HISTORY: Sepsis, Covid-19. COMPARISON: None available. FINDINGS: There are minimal bibasilar airspace opacities. No pleural effusion or pneumothorax. Heart size is normal. IMPRESSION: Minimal bibasilar airspace opacities concerning for pneumonia. Dictated on workstation # [email or web address] Dict: 03/11/20 1730 Trans: 03/11/20 1734 [facility] [id number] Interpreted by: MARCELA FERRIS MD Electronically signed by: Reviewed: Reviewed by Me Departure Communication (Admissions) Time/Spoke to Admitting Phy: 17:45 Discussed the case with Dr. Villagran and he agrees to take the patient on the floor. He will discussed doing rim does appear and convalescent plasma with her. He agrees with steroids and holding off on antibiotics. Impression Primary Impression: Acute respiratory failure with hypoxia Additional Impressions: COVID-19 Sepsis Qualified Codes: A41.9 - Sepsis, unspecified organism; R65.20 - Severe sepsis without septic shock; J96.01 - Acute respiratory failure with hypoxia Influenza B Disposition: ADMITTED INPATIENT Condition: Stable Admissions Decision to Admit Reason: Admit from ER (General) Decision to Admit/Date: Mar 11, 2020 Time/Decision to Admit Time: 17:05 Departure-Patient Inst. Referrals: NITZA FUENTES MD (PCP/Family) Primary Care Physician MADYSON CID Mar 11, 2020 17:15
[2020-03-11 17:16] LABS: ABG OXYGEN SATURATION 96 % (94-100); ABG PCO2 38 MMHG (35-45); ABG PH 7.43 (7.37-7.43); ABG PO2 92 MMHG (79-93); ABG TCO2 25.6 MMOL/L (21.0-31.0)
[2020-03-11 17:17] LABS: ALLENS TEST YES-POS; INSPIRED O2 4L; VENTILATOR NO
[2020-03-11 17:19] LABS: ALBUMIN 4.2 GM/DL (3.2-4.5); CHLORIDE 97 MMOL/L (98-107); SODIUM 136 MMOL/L (135-145)
[2020-03-11 17:20] LABS: CALCIUM 9.2 MG/DL (8.5-10.1)
[2020-03-11 17:22] LABS: GLUCOSE 106 MG/DL (70-105); TOTAL PROTEIN 7.9 GM/DL (6.4-8.2)
[2020-03-11 17:23] LABS: BILIRUBIN,TOTAL 0.6 MG/DL (0.1-1.0); CARBON DIOXIDE 28 MMOL/L (21-32); FIBRIN DEGRADATION PRODUCTS 0.76 UG/ML (0.00-0.49); PROTHROMBIN TIME PATIENT 13.1 SEC (12.2-14.7)
[2020-03-11 17:25] LABS: ALKALINE PHOSPHATASE 70 U/L (40-136); CREATININE SERUM 0.94 MG/DL (0.60-1.30); GFR ESTIMATED > 60; PHOSPHORUS 2.8 MG/DL (2.3-4.7)
[2020-03-11 17:26] LABS: BUN/CREATININE RATIO 7
[2020-03-11 17:28] LABS: ALANINE AMINOTRANSFERASE 24 U/L (0-55); MAGNESIUM 1.7 MG/DL (1.6-2.4)
[2020-03-11] MEDS ORDERED: FAMOTIDINE 20MG/2ML IV (PEPCID) IVP ONE (17:30)
--- NOTE | 2020-03-11 17:35 | Diagnostic Imaging Report ---
EXAMINATION: Chest 1 view. HISTORY: Sepsis, Covid-19. COMPARISON: None available. FINDINGS: There are minimal bibasilar airspace opacities. No pleural effusion or pneumothorax. Heart size is normal. IMPRESSION: Minimal bibasilar airspace opacities concerning for pneumonia. Dictated by: Dictated on workstation # [email or web address]
[2020-03-11] MEDS ORDERED: OSELTAMIVIR 75 MG (TAMIFLU) CAPSULE PO ONE (17:45)
[2020-03-11 18:00] LABS: BILIRUBIN,URINE NEGATIVE (NEGATIVE); CLARITY,URINE CLEAR; COLOR,URINE YELLOW; GLUCOSE, URINE (UA) NEGATIVE (NEGATIVE); KETONES,URINE NEGATIVE (NEGATIVE); LEUKOCYTE ESTERASE ,URINE NEGATIVE (NEGATIVE); NITRITE,URINE NEGATIVE (NEGATIVE); PROTEIN,URINE TRACE (NEGATIVE)
[2020-03-11 18:08] LABS: BACTERIA,URINE NEGATIVE /HPF; SQUAMOUS EPITHELIAL CELL,UR 0-2 /HPF
--- NOTE | 2020-03-11 18:47 | NUR ---
SHER THOMPSON admitted to room 433-1, with an admitting diagnosis of COVID19, FLU-B, ACUTE RESPIRATORY FAILURE WITH HYPOXIA, SEPSIS, on 03/11/20 from ED via W/C, accompanied by ED STAFF. SHER THOMPSON introduced to surroundings, call light, bed controls, phone, TV, temperature control, lights, meal times, smoking policy, visitor policy, side rail policy, bathrooms and showers. Patient Rights given to patient in the handbook. SHER THOMPSON verbalizes understanding that [facility] is not responsible for the loss or damage to any personal effects or valuables that are kept in the patients possession during their hospitalization.
[2020-03-11] MEDS ORDERED: REMDESIVIR 200 MG/NS 250 ML IVPB IV NR ×2 (19:15)
[2020-03-11] MEDS ORDERED: ANTACID SUSP 30 ML UDC (MYLANTA) PO PRN (19:15)
[2020-03-11] MEDS ORDERED: IBUPROFEN 800 MG (MOTRIN) TAB PO PRN (19:15)
[2020-03-11] MEDS ORDERED: CATHETER FLUSH 10 ML SYR IV PRN (19:15)
[2020-03-11] MEDS ORDERED: ACETAMINOPHEN 325 MG TABLET PO PRN (19:15)
[2020-03-11 19:55] VITALS: BP 120/78
--- NOTE | 2020-03-11 20:10 | NUR ---
ALBUTEROL 4P QID AND Q2 PRN. AEROBIKKA TID. INITIATE 02 0-6L TO KEEP SATS > THAN 94%. Addendum: 03/11/20 at 2011 by ERIC MO RT Amended: Links added.
[2020-03-11] MEDS ORDERED: RT-ALBUTEROL INHALER HFA (VENTOLIN HFA) 18 GM IH PRN (20:15)
[2020-03-11] MEDS ORDERED: KCL 20 MEQ TAB (K-DUR) PO NR (20:15)
[2020-03-11] MEDS: LACTATED RINGERS 1,000 ML IV SCH (20:39)
[2020-03-11] MEDS: ENOXAPARIN 40 MG/0.4 ML (LOVENOX) SYR SC SCH (20:39)
[2020-03-11 20:40] VITALS: BP 116/61
[2020-03-11 20:41] VITALS: BP 116/61
[2020-03-11] MEDS: hydrOXYzine (VISTARIL/ATARAX) 25 MG capsule/tablet PO PRN (22:06)
[2020-03-12] VITALS (9 sets, daily range): BP systolic 80–123; BP diastolic 42–82
[2020-03-12] MEDS ORDERED: NS IV 500 ML 500 ML IV SCH (02:30)
[2020-03-12] MEDS: LACTATED RINGERS 1,000 ML IV SCH (05:30)
[2020-03-12] MEDS: OSELTAMIVIR 75 MG (TAMIFLU) CAPSULE PO SCH ×2 (05:32→18:24)
[2020-03-12 05:45] LABS: BASOPHILS % (AUTO) 0 % (0-10); EOSINOPHILS % (AUTO) 0 % (0-10); HEMATOCRIT 37 % (35-52); HEMOGLOBIN 12.2 g/dL (11.5-16.0); LYMPHOCYTES # (AUTO) 0.8 10^3/uL (1.0-4.0); LYMPHOCYTES % (AUTO) 25 % (12-44); MEAN CORPUSCULAR HEMOGLOBIN 29 pg (25-34); MEAN CORPUSCULAR HGB CONC 33 g/dL (32-36); MEAN CORPUSCULAR VOLUME 88 fL (80-99); MEAN PLATELET VOLUME 10.1 fL (9.0-12.2); MONOCYTES # (AUTO) 0.3 10^3/uL (0.0-1.0); MONOCYTES % (AUTO) 9 % (0-12); NEUTROPHILS # (AUTO) 2.1 10^3/uL (1.8-7.8); NEUTROPHILS % (AUTO) 66 % (42-75); PLATELET COUNT 193 10^3/uL (130-400); WHITE BLOOD COUNT 3.2 10^3/uL (4.3-11.0)
[2020-03-12 06:27] LABS: ALBUMIN 3.5 GM/DL (3.2-4.5); CHLORIDE 106 MMOL/L (98-107); POTASSIUM 3.9 MMOL/L (3.6-5.0); SODIUM 141 MMOL/L (135-145)
[2020-03-12 06:28] LABS: CALCIUM 8.4 MG/DL (8.5-10.1)
[2020-03-12 06:29] LABS: GLUCOSE 133 MG/DL (70-105)
[2020-03-12 06:30] LABS: TOTAL PROTEIN 6.6 GM/DL (6.4-8.2)
[2020-03-12 06:31] LABS: BILIRUBIN,TOTAL 0.3 MG/DL (0.1-1.0); CARBON DIOXIDE 24 MMOL/L (21-32)
[2020-03-12 06:33] LABS: ALKALINE PHOSPHATASE 54 U/L (40-136); CREATININE SERUM 0.79 MG/DL (0.60-1.30); GFR ESTIMATED > 60
[2020-03-12 06:34] LABS: BUN/CREATININE RATIO 10
[2020-03-12 06:36] LABS: ALANINE AMINOTRANSFERASE 21 U/L (0-55)
[2020-03-12] MEDS: RT-ALBUTEROL INHALER HFA (VENTOLIN HFA) 18 GM IH SCH ×4 (08:12→19:12)
[2020-03-12] MEDS ORDERED: diphenhydrAMINE 25 MG TAB (BENADRYL) PO PRN (13:45)
[2020-03-12] MEDS ORDERED: MELATONIN 3 MG TABLET PO PRN (13:45)
[2020-03-12] MEDS ORDERED: ONDANSETRON 4 MG/2 ML (SDV) Z0FRAN IV PRN (13:45)
[2020-03-12] MEDS ORDERED: polyethylene glycoL POWDER 17 GM (MIRALAX) PACK PO PRN (13:45)
[2020-03-12] MEDS ORDERED: ONDANSETRON 4 MG (ZOFRAN) ORAL DISSOLVE TAB PO PRN (13:45)
[2020-03-12] MEDS ORDERED: ONDANSETRON 4 MG/2 ML (SDV) Z0FRAN ONE (13:46)
--- NOTE | 2020-03-12 13:49 | History & Physical-Hospitalist ---
History of Present Illness HPI/Chief Complaint Gretel Alves is a 35-year-old female who presented with shortness of breath. 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 She reports that her boyfriend was diagnosed with COVID a week ago. Yesterday she developed a cough which became so severe that she had a posttussive emesis. She reports fevers and chills. She reports body aches. She is feeling short of breath. She has lost her appetite. Source: patient Exam Limitations: no limitations Date Seen 03/12/20 Time Seen by a Provider: 11:15 Attending Physician Elsa Paredes MD PCP Kristi Ornelas MD Referring Physician Date of Admission Mar 11, 2020 at 17:35 Home Medications & Allergies Home Medications Reviewed patient Home Medication Reconciliation performed by pharmacy medication reconciliations parts identification technician and/or nursing. Patients Allergies have been reviewed. Allergies Allergies Coded Allergies sumatriptan (Verified Allergy, Unknown, Anaphylaxis, 11/07/19) Past Fbulryt-Sioitb-Jxqksc Hx Past Med/Social Hx: Reviewed Nursing Past Med/Soc Hx Patient Social History Alcohol Use: Denies Use Recreational Drug Use: No Smoking Status: Never a Smoker 2nd Hand Smoke Exposure: No Recent Foreign Travel: No Contact w/other who traveled: No Recent Hopitalizations: No Recent Infectious Disease Expo: No Immunizations Up To Date Date of Influenza Vaccine: Feb 03, 2020 Seasonal Allergies Seasonal Allergies: No Past Medical History Surgeries: Hysterectomy Hysterectomy Genitourinary: UTI-Chronic Psychosocial: Anxiety History of Blood Disorders: No Family History Cardiovascular disease 19 MOTHER Diabetes mellitus 19 MOTHER G8 BROTHER Hypertension 19 FATHER 19 MOTHER Review of Systems Constitutional: chills, fever, malaise, weakness EENTM: no symptoms reported Respiratory: cough, short of breath Cardiovascular: no symptoms reported Gastrointestinal: vomiting Genitourinary: no symptoms reported Musculoskeletal: muscle pain Skin: no symptoms reported Psychiatric/Neurological: Anxiety Physical Exam Physical Exam Vital Signs Vital Signs - First Documented 03/11/20 03/11/20 16:40 19:55 Temp 38.8 Pulse 105 Resp 25 B/P (MAP) 120/78 (92) Pulse Ox 93 O2 Delivery Nasal Cannula O2 Flow Rate 4.00 FiO2 21 Capillary Refill : Less Than 3 Seconds Height, Weight, BMI Height: 5'4" Weight: 140lbs. oz. 63.276735mn; 34.34 BMI Method:Stated General Appearance: No Apparent Distress, Obese, Other (proning) Respiratory: Lungs Clear, Normal Breath Sounds, No Respiratory Distress Cardiovascular: Regular Rate, Rhythm, No Edema, No Murmur Gastrointestinal: Normal Bowel Sounds, Soft Extremity: Normal Inspection, Non Tender, No Pedal Edema Neurologic/Psychiatric: Alert, Oriented x3, No Motor/Sensory Deficits, Normal Mood/Affect Skin: Normal Color, Warm/Dry Results Results/Procedures Labs Laboratory Tests 03/11/20 16:50 03/12/20 05:20 Patient resulted labs reviewed. Imaging: Reviewed Imaging Report Assessment/Plan Admission Diagnosis Acute respiratory failure due to COVID-19 and influenza B Admission Status: Inpatient Order (span 2 midnights) Reason for Inpatient Admission: respiratory failure requiring supplemental oxygen Assessment and Plan Acute respiratory failure due to COVID-19 and influenza B COVID JORDY positive Influenza B positive CXR with bilateral opacities Procalcitonin normal x2 Ddimer 0.76, prophylactic Lovenox ordered Started on Decadron and Remdesivir Discussed convalescent plasma, risks/benefits/EUA use and patient agreed Started on Tamiflu Proning as tolerated Incentive spirometry MAT protocol Supplemental oxygen as needed, requiring 10 L on my exam Hypokalemia Monitor and replace as needed Lymphopenia Mild, likely due to COVID, monitor Anxiety Continue home meds Obesity Clinically significant, no acute management needs DVT Prophylaxis: Lovenox Diagnosis/Problems Diagnosis/Problems (1) Acute respiratory failure due to COVID-19 Status: Acute (2) Influenza B Status: Acute (3) Lymphopenia associated with COVID-19 Status: Acute (4) Hypokalemia Status: Acute (5) Bradycardia Status: Acute (6) Obesity Status: Chronic (7) Anxiety Status: Chronic Clinical Quality Measures DVT/VTE Risk/Contraindication: Risk Factor Score Per Nursin RFS Level Per Nursing on Admit: 2=Moderate ELSA PAREDES MD Mar 12, 2020 13:49
[2020-03-12] MEDS: hydrOXYzine (VISTARIL/ATARAX) 25 MG capsule/tablet PO PRN ×2 (14:02→21:36)
--- NOTE | 2020-03-12 16:09 | NUR ---
REGGIE NOTIFIED OF PT BP OF 80/42 AT THIS TIME. PT SLEEPING AT TIME BP WAS TAKEN AND IS EASILY AROUSABLE TO VOICE. PT HAS NO C/O OF LIGHT HEADEDNESS AND DOES NO APPEAR SYMPTOMATIC AT THIS TIME. ORDER TO CONTINUE TO MONITOR PER REGGIE.
[2020-03-12] MEDS: REMDESIVIR 100 MG/NS 250 ML IVPB IV SCH ×2 (17:12)
[2020-03-12] MEDS: SENNOSIDES 8.6 MG (SENOKOT) TAB PO SCH (19:54)
[2020-03-12] MEDS: DOCUSATE SODIUM 100 MG (COLACE) CAP PO SCH (19:54)
[2020-03-12] MEDS: ENOXAPARIN 40 MG/0.4 ML (LOVENOX) SYR SC SCH (20:02)
[2020-03-12] MEDS ORDERED: OSELTAMIVIR 75 MG (TAMIFLU) CAPSULE PO SCH (21:00)
[2020-03-13] VITALS (7 sets, daily range): BP systolic 94–123; BP diastolic 47–67
--- NOTE | 2020-03-13 00:30 | NUR ---
DR PAREDES NOTIFIED THAT PT WAS SATING AT 90% ON 10L HIGH FLOW WHILE PRONING, AND THAT WHEN PT TURNED IN BED HER O2 DROPPED TO 87%. PT PLACED ON VAPOTHERM ON 35L 100%, SATING AT 93% WHILE LAYING ON HER SIDE. DR PAREDES SAID TO PUT PT ON THE WAITING LIST FOR AN ICU BED. BUSINESS SERVICES VICE PRESIDENT KRISTYN CALLED REGARDING WHAT SAID. PT SATING AT 97% ON VAPOTHERM AT THIS TIME.
--- NOTE | 2020-03-13 01:11 | NUR ---
ALBUTEROL 4P Q4 AND Q2 PRN. AEROBIPIOA TID. INITIATE 02 0-6L TO KEEP SATS > THAN 94%. rt to reassess or reevaluate in 72 hours or as nee Addendum: 03/13/20 at 0111 by ERIC MO RT Amended: Links added.
[2020-03-13] MEDS: RT-ALBUTEROL INHALER HFA (VENTOLIN HFA) 18 GM IH SCH ×6 (02:07→21:57)
[2020-03-13 06:10] LABS: BASOPHILS % (AUTO) 0 % (0-10); EOSINOPHILS % (AUTO) 0 % (0-10); HEMATOCRIT 34 % (35-52); HEMOGLOBIN 11.1 g/dL (11.5-16.0); LYMPHOCYTES # (AUTO) 1.1 10^3/uL (1.0-4.0); LYMPHOCYTES % (AUTO) 19 % (12-44); MEAN CORPUSCULAR HEMOGLOBIN 29 pg (25-34); MEAN CORPUSCULAR HGB CONC 33 g/dL (32-36); MEAN CORPUSCULAR VOLUME 89 fL (80-99); MEAN PLATELET VOLUME 10.1 fL (9.0-12.2); MONOCYTES # (AUTO) 0.6 10^3/uL (0.0-1.0); MONOCYTES % (AUTO) 10 % (0-12); NEUTROPHILS # (AUTO) 4.3 10^3/uL (1.8-7.8); NEUTROPHILS % (AUTO) 71 % (42-75); PLATELET COUNT 189 10^3/uL (130-400)
[2020-03-13 06:14] LABS: ALBUMIN 3.1 GM/DL (3.2-4.5); CHLORIDE 105 MMOL/L (98-107); POTASSIUM 3.5 MMOL/L (3.6-5.0); SODIUM 141 MMOL/L (135-145)
[2020-03-13 06:15] LABS: CALCIUM 7.6 MG/DL (8.5-10.1)
[2020-03-13 06:16] LABS: GLUCOSE 126 MG/DL (70-105)
[2020-03-13 06:17] LABS: TOTAL PROTEIN 5.8 GM/DL (6.4-8.2)
[2020-03-13 06:18] LABS: BILIRUBIN,TOTAL 0.2 MG/DL (0.1-1.0); CARBON DIOXIDE 26 MMOL/L (21-32)
[2020-03-13 06:20] LABS: ALKALINE PHOSPHATASE 44 U/L (40-136); GFR ESTIMATED > 60
[2020-03-13 06:21] LABS: BUN/CREATININE RATIO 13
[2020-03-13 06:23] LABS: ALANINE AMINOTRANSFERASE 19 U/L (0-55)
[2020-03-13] MEDS: OSELTAMIVIR 75 MG (TAMIFLU) CAPSULE PO SCH ×2 (06:45→17:07)
[2020-03-13] MEDS ORDERED: KCL 20 MEQ TAB (K-DUR) PO ONE (08:30)
[2020-03-13] MEDS: DOCUSATE SODIUM 100 MG (COLACE) CAP PO SCH ×2 (08:42→20:35)
[2020-03-13] MEDS: SENNOSIDES 8.6 MG (SENOKOT) TAB PO SCH ×2 (08:42→20:36)
--- NOTE | 2020-03-13 10:43 | NUR ---
"RD ASSESSMENT PMHx: chronic UTI; PT INTERACTION: Note pt currently in COVID isolation, per chart review. Note all diet information for nutrition assessment is per Jennifer RN, or per chart review. Jennifer states current appetite appears poor. Note avg PO intake 25% x2meal, per chart review. Jennifer states no issues with nausea, vomiting, constipation, or diarrhea that she is aware of. Note no BM has been recorded, and pt currently on bowel regimen of colace BID, and senna BID, per chart review. Note recent 6# wt gain x4mon, per chart review. ABNORMAL NUTRITION-RELATED LAB VALUES LOW: K 3.5; Ca 7.6; Pro 5.8; alb 3.1; HIGH: glu 126; Est. kcal needs: 5891-7426 kcal | 15-18 kcal/kg Est. Pro needs: 73-91 g Pro | 0.8-1.0 g Pro/kg PES STATEMENT: Inadequate oral intake (NI-2.1) related to loss of appetite as evidenced by chart review, communication with RN, and avg PO intake 25% x2meal. INTERVENTION: Continue with current diet order of Regular diet. Add Ensure Enlive (vary) to meals TID, for increased kcal intake. Provides 350 kcal and 20 g Pro per serving. Would encourage pt to eat when able. Will continue to follow and reassess as pt needs, intake, and status change. Millicent Mckenzie, MS RD LD [phone] cell"
--- NOTE | 2020-03-13 12:16 | Progress Note - Hospitalist ---
Subjective HPI/CC On Admission Date Seen by Provider: Mar 13, 2020 Time Seen by Provider: 11:05 Gretel Alves is a 35-year-old female who presented with shortness of breath. 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 She reports that her boyfriend was diagnosed with COVID a week ago. Yesterday she developed a cough which became so severe that she had a posttussive emesis. She reports fevers and chills. She reports body aches. She is feeling short of breath. She has lost her appetite. Subjective/Events-last exam She Is feeling better this morning. She had a rough night. She was feeling short of breath. She denies any pain. She has no other complaints. Focused Exam Lactate Level 03/11/20 16:50: Lactic Acid Level 1.66 Time of Focused Exam: 17:55 Objective Exam Vital Signs Vital Signs Date Time Temp Pulse Resp B/P (MAP) Pulse Ox O2 Delivery O2 Flow Rate FiO2 03/13/20 12:00 36.3 69 18 120/56 (77) 93 Vapotherm 25.00 75.00 03/13/20 10:49 60 Capillary Refill : Less Than 3 Seconds General Appearance: No Apparent Distress, Obese Respiratory: Lungs Clear, Normal Breath Sounds, No Respiratory Distress Cardiovascular: Regular Rate, Rhythm, No Edema, No Murmur Gastrointestinal: Normal Bowel Sounds, Non Tender, Soft Extremity: Normal Inspection, Non Tender, No Pedal Edema Neurologic/Psychiatric: Alert, Oriented x3, No Motor/Sensory Deficits, Normal Mood/Affect Skin: Normal Color, Warm/Dry Results/Procedures Lab Laboratory Tests 03/13/20 05:58 Patient resulted labs reviewed. Imaging: Reviewed Imaging Report Assessment/Plan Assessment and Plan Assess & Plan/Chief Complaint Acute respiratory failure due to COVID-19 and influenza B Continue Decadron and Remdesivir s/p 1 unit convalescent plasma continue Tamiflu Proning as tolerated Incentive spirometry MAT protocol Supplemental oxygen as needed Hypokalemia Monitor and replace as needed Anxiety Continue home meds Obesity Clinically significant, no acute management needs DVT Prophylaxis: Lovenox Lymphopenia, resolved Diagnosis/Problems Diagnosis/Problems (1) Acute respiratory failure due to COVID-19 Status: Acute (2) Influenza B Status: Acute (3) Lymphopenia associated with COVID-19 Status: Resolved Resolution Date/Time: 03/13/20 @ 12:16 (4) Hypokalemia Status: Acute (5) Bradycardia Status: Acute (6) Obesity Status: Chronic (7) Anxiety Status: Chronic Clinical Quality Measures DVT/VTE Risk/Contraindication: Risk Factor Score Per Nursin RFS Level Per Nursing on Admit: 2=Moderate ELSA PAREDES MD Mar 13, 2020 12:16
[2020-03-13] MEDS ORDERED: CALC-870 PO (13:38)
[2020-03-13] MEDS ORDERED: HYDR-3781 PO (13:38)
[2020-03-13] MEDS ORDERED: ACET-2267 PO (13:38)
[2020-03-13] MEDS ORDERED: IBUP-2473 PO (13:38)
[2020-03-13] MEDS ORDERED: CITA20TA9 PO (13:38)
--- NOTE | 2020-03-13 13:39 | NUR ---
SPOKE WITH THE PT (I CALLED THE PT ROOM) AND WENT THRU THE EXT MED HISTORY TO COMPLETE THE MED REC HYDROXYZINE 25MG- DIRECTIONS SHOW 1 TAB BID HOWEVER THE PT SAYS SHE JUST TAKES 1 TAB HS OTC MEDS: (ALL PRN) TYLENOL IBUPROFEN TUMS
[2020-03-13] MEDS: REMDESIVIR 100 MG/NS 250 ML IVPB IV SCH ×2 (17:07)
[2020-03-13] MEDS: ENOXAPARIN 40 MG/0.4 ML (LOVENOX) SYR SC SCH (20:50)
[2020-03-13] MEDS: hydrOXYzine (VISTARIL/ATARAX) 25 MG capsule/tablet PO PRN (20:50)
[2020-03-14] VITALS (26 sets, daily range): BP systolic 96–134; BP diastolic 43–79
[2020-03-14] MEDS: RT-ALBUTEROL INHALER HFA (VENTOLIN HFA) 18 GM IH SCH ×6 (02:37→22:31)
[2020-03-14] MEDS ORDERED: LORazepam 0.5 MG (ATIVAN) TABLET PO ONE (04:00)
[2020-03-14] MEDS ORDERED: LORazepam 0.5 MG (ATIVAN) TABLET ONE (04:01)
--- NOTE | 2020-03-14 04:34 | NUR ---
THE FOLLOWING IS A TIMELINE NOTE 0235- THIS NURSE NOTED THAT PT O2 DROPPED TO 87% WHILE ON 6L HIGH FLOW. OXYGEN INCREASED TO 10L, INHALER GIVEN PER EMAR, PT O2 SAT STILL AROUND 90%-91%. PT IS VISIBLY UNCOMFORTABLE, LABORED BREATHING NOTED. RT CALLED AT THIS TIME. VAPOTHERM SET UP AT 40L/ 100%. PT ALSO LAID IN PRONE POSITION, O2 SAT AT 98%. 0350- PT PUT CUTTING TORCH OPERATOR LIGHT TO NOTIFY THIS NURSE THAT SHE IS STILL FINDING IT HARD TO BREATHE, PT O2 AT 93% WHILE IN PRONE POSITION. PT DENIES ANXIETY, REPORTS FEELING TIGHTNESS IN CHEST AND HARD TO BREATHE, PT BREATHING IS MORE LABORED AT THIS TIME. DR PAREDES CALLED AT 0355 REGARDING PT'S INCREASED NEED FOR OXYGEN, WELL PT'S COMPLAINTS OF DIFFICULTY BREATHING, SAYS THAT WE ARE DOING ALL THERE IS AT THIS TIME, BUT WE COULD TRY PUTTING PT ON BIPAP, BUT TO HOLD OFF UNLESS NECESSARY. PT O2 AT 89%-90% THIS TIME. DR PAREDES CALLED BACK, ORDER FOR BIPAP AND ATIVAN OBTAINED. RT CALLED TO HAVE BIPAP SET UP. 0411- DR PAREDES CONTACTED THIS NURSE AND ORDERED TO TRANSFER PT TO ICU.
--- NOTE | 2020-03-14 05:11 | NUR ---
Report received from Marilu RODRIGUEZ.
--- NOTE | 2020-03-14 05:35 | NUR ---
0535 hrs. pt received to ICU RM 10 on bipap support. Pt is A&O x4, cooperative and pleasant. Pt bilateral upper lobes clear to auscultation, bases diminished bilaterally. Pt is sinus bradycardic rates in the 50's upon arrival. SP 112/70. Bilateral radial pulses and DP palpable +2/2. No edema noted. Pt does have active bowel sounds x4 quad. Munoz catheter to dependent drain c 45 ml clear yellow output. Pt has 20G LAC that is patent. 0600 hrs. MRSA and ABG sent to lab. Addendum: 03/14/20 at 0619 by YAQUELIN NICHOLSON RN Bipap settings 10 35%
--- NOTE | 2020-03-14 05:35 | NUR ---
pt transferred to ICU at this time
[2020-03-14 06:02] LABS: BASOPHILS % (AUTO) 0 % (0-10); EOSINOPHILS % (AUTO) 0 % (0-10); HEMATOCRIT 35 % (35-52); HEMOGLOBIN 11.3 g/dL (11.5-16.0); LYMPHOCYTES # (AUTO) 1.7 10^3/uL (1.0-4.0); LYMPHOCYTES % (AUTO) 21 % (12-44); MEAN CORPUSCULAR HEMOGLOBIN 29 pg (25-34); MEAN CORPUSCULAR HGB CONC 32 g/dL (32-36); MEAN CORPUSCULAR VOLUME 90 fL (80-99); MONOCYTES # (AUTO) 0.7 10^3/uL (0.0-1.0); MONOCYTES % (AUTO) 9 % (0-12); NEUTROPHILS # (AUTO) 5.2 10^3/uL (1.8-7.8); NEUTROPHILS % (AUTO) 67 % (42-75); PLATELET COUNT 236 10^3/uL (130-400); WHITE BLOOD COUNT 7.8 10^3/uL (4.3-11.0)
[2020-03-14] MEDS: OSELTAMIVIR 75 MG (TAMIFLU) CAPSULE PO SCH ×2 (06:11→17:25)
[2020-03-14 06:20] LABS: ALBUMIN 3.2 GM/DL (3.2-4.5)
[2020-03-14 06:21] LABS: CHLORIDE 104 MMOL/L (98-107); SODIUM 141 MMOL/L (135-145)
[2020-03-14 06:22] LABS: CALCIUM 7.6 MG/DL (8.5-10.1)
[2020-03-14 06:23] LABS: GLUCOSE 105 MG/DL (70-105); TOTAL PROTEIN 6.1 GM/DL (6.4-8.2)
[2020-03-14 06:24] LABS: CARBON DIOXIDE 27 MMOL/L (21-32)
[2020-03-14 06:25] LABS: BILIRUBIN,TOTAL 0.4 MG/DL (0.1-1.0); SMEAR SCAN COMMENT YES
[2020-03-14 06:26] LABS: ALKALINE PHOSPHATASE 48 U/L (40-136)
[2020-03-14 06:27] LABS: CREATININE SERUM 0.72 MG/DL (0.60-1.30); GFR ESTIMATED > 60
[2020-03-14 06:28] LABS: BUN/CREATININE RATIO 15
[2020-03-14] MEDS: KCL 20 MEQ TAB (K-DUR) PO SCH (06:29)
[2020-03-14 06:30] LABS: ALANINE AMINOTRANSFERASE 52 U/L (0-55)
[2020-03-14 06:35] LABS: ABG BASE EXCESS 5.5 MMOL/L (-2.5-2.5); ABG OXYGEN SATURATION 99 % (94-100); ABG PCO2 44 MMHG (35-45); ABG PH 7.44 (7.37-7.43); ABG PO2 135 MMHG (79-93); ABG TCO2 30.9 MMOL/L (21.0-31.0)
[2020-03-14 06:36] LABS: ALLENS TEST YES-POS; INSPIRED O2 35%; PATIENT TEMP 36.8; VENTILATOR NO
[2020-03-14] MEDS: POTASSIUM CL 10MEQ/50ML IVPB 50 ML IV SCH (06:51)
[2020-03-14] MEDS: MAGNESIUM 1 GM/100 ML IVPB 100 ML IV SCH (08:24)
[2020-03-14] MEDS ORDERED: KCL 20 MEQ TAB (K-DUR) PO ONE ×2 (08:30→10:30)
[2020-03-14] MEDS: SENNOSIDES 8.6 MG (SENOKOT) TAB PO SCH ×2 (10:13→20:23)
[2020-03-14] MEDS: DOCUSATE SODIUM 100 MG (COLACE) CAP PO SCH ×2 (10:13→20:23)
--- NOTE | 2020-03-14 14:37 | Progress Note - Hospitalist ---
Subjective HPI/CC On Admission Date Seen by Provider: Mar 14, 2020 Time Seen by Provider: 11:05 Gretel Alves is a 35-year-old female who presented with shortness of breath. 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 She reports that her boyfriend was diagnosed with COVID a week ago. Yesterday she developed a cough which became so severe that she had a posttussive emesis. She reports fevers and chills. She reports body aches. She is feeling short of breath. She has lost her appetite. Subjective/Events-last exam She is feeling better this morning. She had a difficult night. She was feeling short of breath. She denies any fevers. She is having a cough. She denies chest pain. Focused Exam Lactate Level 03/11/20 16:50: Lactic Acid Level 1.66 Time of Focused Exam: 17:55 Objective Exam Vital Signs Vital Signs Date Time Temp Pulse Resp B/P (MAP) Pulse Ox O2 Delivery O2 Flow Rate FiO2 03/14/20 14:00 64 23 103/62 (76) 96 Vapotherm 30.00 50.00 03/14/20 08:11 36.6 03/14/20 08:00 25 Capillary Refill : Less Than 3 Seconds General Appearance: No Apparent Distress, Obese Respiratory: Lungs Clear, Normal Breath Sounds, No Respiratory Distress, Other (wearing BiPAP) Cardiovascular: Regular Rate, Rhythm, No Edema, No Murmur Gastrointestinal: Normal Bowel Sounds, Non Tender, Soft Extremity: Normal Inspection, Non Tender, No Pedal Edema Neurologic/Psychiatric: Alert, Oriented x3, No Motor/Sensory Deficits, Normal Mood/Affect Skin: Normal Color, Warm/Dry Results/Procedures Lab Laboratory Tests 03/14/20 05:41 Patient resulted labs reviewed. Imaging: Reviewed Imaging Report Assessment/Plan Assessment and Plan Assess & Plan/Chief Complaint Acute respiratory failure due to COVID-19 and influenza B Transferred to ICU overnight Maxed out on Vapotherm, requiried BiPAP Procalcitonin remains normal, antibiotics not indicated D-dimer improved, continue prophylactic Lovenox BNP mildly elevated, no Lasix needed at this time Continue Decadron and Remdesivir for COVID s/p 1 unit convalescent plasma continue Tamiflu for influenza Proning as tolerated Incentive spirometry MAT protocol Hypokalemia Monitor and replace as needed Anxiety Claustrophobia Continue home meds Ativan added for claustrophobia Obesity Clinically significant, no acute management needs DVT Prophylaxis: Lovenox Lymphopenia, resolved Diagnosis/Problems Diagnosis/Problems (1) Acute respiratory failure due to COVID-19 Status: Acute (2) Influenza B Status: Acute (3) Lymphopenia associated with COVID-19 Status: Resolved Resolution Date/Time: 03/13/20 @ 12:16 (4) Hypokalemia Status: Acute (5) Bradycardia Status: Acute (6) Obesity Status: Chronic (7) Anxiety Status: Chronic (8) Claustrophobia Status: Chronic Clinical Quality Measures DVT/VTE Risk/Contraindication: Risk Factor Score Per Nursin RFS Level Per Nursing on Admit: 2=Moderate ELSA PAREDES MD Mar 14, 2020 14:37
[2020-03-14] MEDS: REMDESIVIR 100 MG/NS 250 ML IVPB IV SCH ×2 (17:24)
[2020-03-14] MEDS: LORazepam 0.5 MG (ATIVAN) TABLET PO PRN (20:22)
[2020-03-14] MEDS: ENOXAPARIN 40 MG/0.4 ML (LOVENOX) SYR SC SCH (20:22)
[2020-03-14] MEDS ORDERED: IBUPROFEN TABLET 200 MG TAB PO PRN (22:30)
[2020-03-15] VITALS (20 sets, daily range): BP systolic 93–128; BP diastolic 59–85
[2020-03-15] MEDS: RT-ALBUTEROL INHALER HFA (VENTOLIN HFA) 18 GM IH SCH ×5 (01:41→21:38)
[2020-03-15 03:36] LABS: BASOPHILS % (AUTO) 0 % (0-10); EOSINOPHILS % (AUTO) 0 % (0-10); HEMATOCRIT 35 % (35-52); LYMPHOCYTES # (AUTO) 1.8 10^3/uL (1.0-4.0); LYMPHOCYTES % (AUTO) 24 % (12-44); MEAN CORPUSCULAR HEMOGLOBIN 29 pg (25-34); MEAN CORPUSCULAR HGB CONC 32 g/dL (32-36); MEAN CORPUSCULAR VOLUME 92 fL (80-99); MEAN PLATELET VOLUME 9.8 fL (9.0-12.2); MONOCYTES # (AUTO) 0.7 10^3/uL (0.0-1.0); MONOCYTES % (AUTO) 9 % (0-12); NEUTROPHILS # (AUTO) 4.9 10^3/uL (1.8-7.8); NEUTROPHILS % (AUTO) 65 % (42-75); PLATELET COUNT 227 10^3/uL (130-400); WHITE BLOOD COUNT 7.5 10^3/uL (4.3-11.0)
[2020-03-15 04:18] LABS: ALBUMIN 3.1 GM/DL (3.2-4.5); CHLORIDE 105 MMOL/L (98-107); SODIUM 140 MMOL/L (135-145)
[2020-03-15 04:19] LABS: CALCIUM 7.5 MG/DL (8.5-10.1)
[2020-03-15 04:20] LABS: GLUCOSE 107 MG/DL (70-105); TOTAL PROTEIN 5.8 GM/DL (6.4-8.2)
[2020-03-15 04:22] LABS: BILIRUBIN,TOTAL 0.4 MG/DL (0.1-1.0); CARBON DIOXIDE 25 MMOL/L (21-32)
[2020-03-15 04:24] LABS: ALKALINE PHOSPHATASE 53 U/L (40-136); GFR ESTIMATED > 60; PHOSPHORUS 3.5 MG/DL (2.3-4.7)
[2020-03-15 04:25] LABS: BUN/CREATININE RATIO 19
[2020-03-15 04:27] LABS: ALANINE AMINOTRANSFERASE 58 U/L (0-55); MAGNESIUM 2.3 MG/DL (1.6-2.4)
[2020-03-15] MEDS: POTASSIUM CL 10MEQ/50ML IVPB 50 ML IV SCH (06:03)
[2020-03-15] MEDS: MAGNESIUM 1 GM/100 ML IVPB 100 ML IV SCH (06:03)
[2020-03-15] MEDS: KCL 20 MEQ TAB (K-DUR) PO SCH (06:03)
[2020-03-15] MEDS: OSELTAMIVIR 75 MG (TAMIFLU) CAPSULE PO SCH ×2 (06:04→17:13)
[2020-03-15] MEDS: SENNOSIDES 8.6 MG (SENOKOT) TAB PO SCH ×2 (08:07→21:38)
[2020-03-15] MEDS: DOCUSATE SODIUM 100 MG (COLACE) CAP PO SCH ×2 (08:07→21:37)
--- NOTE | 2020-03-15 08:48 | Diagnostic Imaging Report ---
INDICATION: Dyspnea. COMPARISON: 03/11/2020. FINDINGS: The heart size is normal. There is bibasilar atelectases and/or pneumonitis. There is a left pleural effusion. There is no pneumothorax. Mediastinum is unremarkable. IMPRESSION: 1. Bibasilar atelectases and/or pneumonitis. 2. Small left pleural effusion. Dictated by: Dictated on workstation # [id number]
--- NOTE | 2020-03-15 14:20 | NUR ---
Patient to room at this time via w/c and comes with all belongings. Requesting shower this afternoon. This RN will assume care of this patient at this time. bedside report received from Latoya Khan RN
--- NOTE | 2020-03-15 17:06 | Progress Note - Hospitalist ---
Subjective HPI/CC On Admission Date Seen by Provider: Mar 15, 2020 Time Seen by Provider: 10:50 Gretel Alves is a 35-year-old female who presented with shortness of breath. 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 She reports that her boyfriend was diagnosed with COVID a week ago. Yesterday she developed a cough which became so severe that she had a posttussive emesis. She reports fevers and chills. She reports body aches. She is feeling short of breath. She has lost her appetite. Subjective/Events-last exam She is feeling better today. She is not feeling short of breath. She had a better night on BiPAP last night. She has been eating and drinking without issue. Focused Exam Time of Focused Exam: 17:55 Objective Exam Vital Signs Vital Signs Date Time Temp Pulse Resp B/P (MAP) Pulse Ox O2 Delivery O2 Flow Rate FiO2 03/15/20 14:35 36.4 66 16 104/66 (79) 96 High Flow N/C 8.00 03/15/20 08:00 30 Capillary Refill : Less Than 3 Seconds General Appearance: No Apparent Distress, Obese Respiratory: Lungs Clear, Normal Breath Sounds, No Respiratory Distress Cardiovascular: Regular Rate, Rhythm, No Edema, No Murmur Gastrointestinal: Normal Bowel Sounds, Non Tender, Soft Extremity: Normal Inspection, Non Tender, No Pedal Edema Neurologic/Psychiatric: Alert, Oriented x3, No Motor/Sensory Deficits, Normal Mood/Affect Skin: Normal Color, Warm/Dry Results/Procedures Lab Laboratory Tests 03/15/20 03:20 Patient resulted labs reviewed. Imaging: Reviewed Imaging Report Assessment/Plan Assessment and Plan Assess & Plan/Chief Complaint Acute respiratory failure due to COVID-19 and influenza B Continue Decadron and Remdesivir for COVID s/p 1 unit convalescent plasma continue Tamiflu for influenza Supplemental oxygen as needed, BIPAP at night Proning as tolerated Incentive spirometry MAT protocol Transfer to 4th floor Anxiety Claustrophobia Continue home meds Ativan added for claustrophobia assosicated with BiPAP Obesity Clinically significant, no acute management needs DVT Prophylaxis: Lovenox Lymphopenia, resolved Hypokalemia, resolved Diagnosis/Problems Diagnosis/Problems (1) Acute respiratory failure due to COVID-19 Status: Acute (2) Influenza B Status: Acute (3) Lymphopenia associated with COVID-19 Status: Resolved Resolution Date/Time: 03/13/20 @ 12:16 (4) Hypokalemia Status: Resolved Resolution Date/Time: 03/15/20 @ 17:05 (5) Bradycardia Status: Acute (6) Obesity Status: Chronic (7) Anxiety Status: Chronic (8) Claustrophobia Status: Chronic Clinical Quality Measures DVT/VTE Risk/Contraindication: Risk Factor Score Per Nursin RFS Level Per Nursing on Admit: 2=Moderate ELSA PAREDES MD Mar 15, 2020 17:06
[2020-03-15] MEDS: REMDESIVIR 100 MG/NS 250 ML IVPB IV SCH ×2 (17:13)
--- NOTE | 2020-03-15 17:14 | NUR ---
unable to scan medications as the scanner was in her room
[2020-03-15] MEDS: ENOXAPARIN 40 MG/0.4 ML (LOVENOX) SYR SC SCH (21:37)
[2020-03-15] MEDS: LORazepam 0.5 MG (ATIVAN) TABLET PO PRN (21:40)
[2020-03-16 00:07] VITALS: BP 115/63
[2020-03-16] MEDS: RT-ALBUTEROL INHALER HFA (VENTOLIN HFA) 18 GM IH SCH ×4 (03:21→19:40)
[2020-03-16 04:00] VITALS: BP 114/62
[2020-03-16] MEDS: OSELTAMIVIR 75 MG (TAMIFLU) CAPSULE PO SCH (06:44)
[2020-03-16 07:15] LABS: BASOPHILS % (AUTO) 0 % (0-10); EOSINOPHILS % (AUTO) 0 % (0-10); HEMATOCRIT 36 % (35-52); HEMOGLOBIN 11.5 g/dL (11.5-16.0); LYMPHOCYTES # (AUTO) 2.4 10^3/uL (1.0-4.0); LYMPHOCYTES % (AUTO) 26 % (12-44); MEAN CORPUSCULAR HEMOGLOBIN 29 pg (25-34); MEAN CORPUSCULAR HGB CONC 32 g/dL (32-36); MEAN CORPUSCULAR VOLUME 92 fL (80-99); MEAN PLATELET VOLUME 10.1 fL (9.0-12.2); MONOCYTES # (AUTO) 0.8 10^3/uL (0.0-1.0); MONOCYTES % (AUTO) 9 % (0-12); NEUTROPHILS # (AUTO) 5.6 10^3/uL (1.8-7.8); NEUTROPHILS % (AUTO) 60 % (42-75); PLATELET COUNT 255 10^3/uL (130-400); WHITE BLOOD COUNT 9.3 10^3/uL (4.3-11.0)
--- NOTE | 2020-03-16 07:22 | Diagnostic Imaging Report ---
Indication: Dyspnea AP view of the chest is obtained with comparison made to study of one day earlier. There is mild blunting of both costophrenic sulci. Left basilar atelectasis and/or pneumonitis persists. There is no evidence of pneumothorax or new infiltrate. Impression: Probable small pleural effusions with continued left basilar atelectasis and/or pneumonitis. Dictated by: Dictated on workstation # [id number]
[2020-03-16 07:33] LABS: ALANINE AMINOTRANSFERASE 45 U/L (0-55); ALKALINE PHOSPHATASE 47 U/L (40-136); BILIRUBIN,TOTAL 0.3 MG/DL (0.1-1.0); BUN/CREATININE RATIO 24; CARBON DIOXIDE 27 MMOL/L (21-32); CHLORIDE 104 MMOL/L (98-107); GFR ESTIMATED > 60; GLUCOSE 114 MG/DL (70-105); PHOSPHORUS 4.6 MG/DL (2.3-4.7); POTASSIUM 3.3 MMOL/L (3.6-5.0); SODIUM 140 MMOL/L (135-145); TOTAL PROTEIN 5.7 GM/DL (6.4-8.2)
[2020-03-16] MEDS: MAGNESIUM 1 GM/100 ML IVPB 100 ML IV SCH (07:56)
[2020-03-16] MEDS: POTASSIUM CL 10MEQ/50ML IVPB 50 ML IV SCH (07:56)
[2020-03-16] MEDS ORDERED: KCL 20 MEQ TAB (K-DUR) PO ONE ×2 (08:00→11:00)
[2020-03-16] MEDS: KCL 20 MEQ TAB (K-DUR) PO SCH (08:01)
[2020-03-16 08:23] VITALS: BP 128/67
[2020-03-16] MEDS: DOCUSATE SODIUM 100 MG (COLACE) CAP PO SCH ×2 (09:49→20:20)
[2020-03-16] MEDS: SENNOSIDES 8.6 MG (SENOKOT) TAB PO SCH ×2 (09:49→20:20)
--- NOTE | 2020-03-16 11:11 | Physician Query Clarification ---
PQ-Conflicting Diagnosis Admission/Discharge Admission Date: Mar 11, 2020 at 17:35 Discharge Date: Dr. Paredes, The medical record reflects the following clinical scenario: History/Risk Factors: COVID 19 Influenza B Acute Respiratory Failure Clinical Findings: WBC 5.5, Lactic acid 1.66, T 38.8, P 105, Resp 25 and PB 120/78. Treatment:IV Remdesivir 20mg, Convalescent Plasma transfusion, Decadron injection 6mg and Tamiflu 75mg. Question: Do you agree with the impression of the Sepsis per Dr. Garza, ED physician? If sepsis, was it severe? Please document a response in Progress Note or Discharge Summary. 1. Yes 2. No 3. Other, with explanation of clinical findings 4. Clinically undetermined, no explanation for clinical findings. PHYSICIAN RESPONSE Do you agree w/Consulting Dx?: Other,explanation/clincal findings Explanation of clincal finding Viral sepsis due to COVID-19 and influenza, no bacterial infection present Please remember a lack of response to the above will prompt a phone page by [facility]/Coding staff. In responding to this query, please exercise your independent professional judgment. The purpose of this communication is to more accurately reflect the complexity of your patients condition. The fact that a question is asked does not imply that any particular answer is desired or expected. Thank you for your timely response to this clarification. Requestors name: Laura Raymond [facility] THIS PHYSICIAN QUERY FORM IS A PERMANENT PART OF THE MEDICAL RECORD LAURA RAYMOND Mar 16, 2020 11:11 ELSA PAREDES MD Mar 23, 2020 16:56
[2020-03-16 11:41] VITALS: BP 127/76
--- NOTE | 2020-03-16 12:37 | Progress Note - Hospitalist ---
Subjective HPI/CC On Admission Date Seen by Provider: Mar 16, 2020 Time Seen by Provider: 12:37 Gretel Alves is a 35-year-old female who presented with shortness of breath. 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 She reports that her boyfriend was diagnosed with COVID a week ago. Yesterday she developed a cough which became so severe that she had a posttussive emesis. She reports fevers and chills. She reports body aches. She is feeling short of breath. She has lost her appetite. Focused Exam Time of Focused Exam: 17:55 Objective Exam Vital Signs Vital Signs Date Time Temp Pulse Resp B/P (MAP) Pulse Ox O2 Delivery O2 Flow Rate FiO2 03/16/20 11:41 36.4 55 18 127/76 (93) 95 03/16/20 09:50 High Flow N/C 6.00 03/15/20 08:00 30 Capillary Refill : Less Than 3 Seconds General Appearance: No Apparent Distress, WD/WN Respiratory: Lungs Clear, No Accessory Muscle Use, Other (on 6lpm) Cardiovascular: Regular Rate, Rhythm, No Murmur Neurologic/Psychiatric: Alert, Oriented x3, Normal Mood/Affect Results/Procedures Lab Laboratory Tests 03/16/20 05:55 Patient resulted labs reviewed. Imaging: Reviewed Imaging Report Assessment/Plan Assessment and Plan Assess & Plan/Chief Complaint Acute respiratory failure due to COVID-19 and influenza B Continue Decadron and Remdesivir for COVID s/p 1 unit convalescent plasma continue Tamiflu for influenza Supplemental oxygen as needed, BIPAP at night Proning as tolerated Incentive spirometry MAT protocol Now on 6lpm, doing better Anxiety Claustrophobia Continue home meds Ativan added for claustrophobia assosicated with BiPAP Obesity Clinically significant, no acute management needs DVT Prophylaxis: Lovenox Lymphopenia, resolved Hypokalemia, resolved Diagnosis/Problems Diagnosis/Problems (1) Acute respiratory failure due to COVID-19 Status: Acute (2) Lymphopenia associated with COVID-19 Status: Resolved Resolution Date/Time: 03/13/20 @ 12:16 (3) Claustrophobia Status: Chronic (4) Obesity Status: Chronic (5) Influenza B Status: Acute Clinical Quality Measures DVT/VTE Risk/Contraindication: Risk Factor Score Per Nursin RFS Level Per Nursing on Admit: 2=Moderate NOHEMY PABLO MD Mar 16, 2020 12:37
[2020-03-16 16:10] VITALS: BP 107/60
[2020-03-16 19:20] VITALS: BP 109/73
[2020-03-16] MEDS: ENOXAPARIN 40 MG/0.4 ML (LOVENOX) SYR SC SCH (20:20)
[2020-03-16] MEDS: hydrOXYzine (VISTARIL/ATARAX) 25 MG capsule/tablet PO PRN (20:27)
[2020-03-17 00:35] VITALS: BP 112/57
[2020-03-17] MEDS: RT-ALBUTEROL INHALER HFA (VENTOLIN HFA) 18 GM IH SCH ×3 (02:49→14:39)
[2020-03-17 06:05] LABS: BASOPHILS # (AUTO) 0.1 10^3/uL (0.0-0.1); BASOPHILS % (AUTO) 0 % (0-10); EOSINOPHILS % (AUTO) 0 % (0-10); HEMATOCRIT 42 % (35-52); HEMOGLOBIN 13.3 g/dL (11.5-16.0); LYMPHOCYTES # (AUTO) 2.7 10^3/uL (1.0-4.0); LYMPHOCYTES % (AUTO) 21 % (12-44); MEAN CORPUSCULAR HEMOGLOBIN 30 pg (25-34); MEAN CORPUSCULAR HGB CONC 32 g/dL (32-36); MEAN CORPUSCULAR VOLUME 92 fL (80-99); MONOCYTES % (AUTO) 7 % (0-12); NEUTROPHILS # (AUTO) 8.4 10^3/uL (1.8-7.8); NEUTROPHILS % (AUTO) 65 % (42-75); PLATELET COUNT 276 10^3/uL (130-400); WHITE BLOOD COUNT 12.9 10^3/uL (4.3-11.0)
[2020-03-17 06:17] LABS: ALBUMIN 3.3 GM/DL (3.2-4.5); CHLORIDE 103 MMOL/L (98-107); POTASSIUM 4.1 MMOL/L (3.6-5.0); SODIUM 136 MMOL/L (135-145)
[2020-03-17 06:19] LABS: CALCIUM 8.1 MG/DL (8.5-10.1)
[2020-03-17 06:20] LABS: GLUCOSE 96 MG/DL (70-105); TOTAL PROTEIN 6.3 GM/DL (6.4-8.2)
[2020-03-17] MEDS: POTASSIUM CL 10MEQ/50ML IVPB 50 ML IV SCH (06:20)
[2020-03-17] MEDS: KCL 20 MEQ TAB (K-DUR) PO SCH (06:20)
[2020-03-17 06:21] LABS: CARBON DIOXIDE 24 MMOL/L (21-32)
[2020-03-17 06:22] LABS: BILIRUBIN,TOTAL 0.4 MG/DL (0.1-1.0)
[2020-03-17 06:23] LABS: ALKALINE PHOSPHATASE 49 U/L (40-136); PHOSPHORUS 4.1 MG/DL (2.3-4.7)
[2020-03-17 06:24] LABS: CREATININE SERUM 0.75 MG/DL (0.60-1.30); GFR ESTIMATED > 60
[2020-03-17 06:25] LABS: BUN/CREATININE RATIO 20
[2020-03-17 06:26] LABS: ALANINE AMINOTRANSFERASE 43 U/L (0-55)
[2020-03-17 06:27] LABS: MAGNESIUM 2.4 MG/DL (1.6-2.4)
[2020-03-17] MEDS: MAGNESIUM 1 GM/100 ML IVPB 100 ML IV SCH (06:30)
[2020-03-17] MEDS: DOCUSATE SODIUM 100 MG (COLACE) CAP PO SCH (08:05)
[2020-03-17] MEDS: SENNOSIDES 8.6 MG (SENOKOT) TAB PO SCH (08:05)
[2020-03-17] MEDS: ENOXAPARIN 40 MG/0.4 ML (LOVENOX) SYR SC SCH (08:31)
[2020-03-17 08:34] VITALS: BP 119/71
--- NOTE | 2020-03-17 12:11 | Discharge Inst-Simple/Standard ---
Discharge Inst-Standard Patient Instructions/Follow Up Plan of Care/Instructions/FU: Please continue to take your medications as written. Please follow up with your primary care doctor to follow up this hospital stay. Activity as Tolerated: Yes Discharge Diet: No Restrictions Return to The Hospital For: Chest pain, shortness of breath, oxygen levels less than 90, fever, confusion, if you feel you are getting worse. NOHEMY PABLO MD Mar 17, 2020 12:11
[2020-03-17] MEDS ORDERED: DEXA6TAB6 PO (12:12)
--- NOTE | 2020-03-17 12:14 | Discharge Summary ---
Diagnosis/Chief Complaint Date of Admission Mar 11, 2020 at 17:35 Date of Discharge Discharge Date: Mar 17, 2020 Admission Diagnosis Acute respiratory failure due to COVID-19 and influenza B Primary Care Kristi Fuentes MD Discharge Diagnosis (1) Acute respiratory failure due to COVID-19 Status: Acute (2) Lymphopenia associated with COVID-19 Status: Resolved (3) Claustrophobia Status: Chronic (4) Obesity Status: Chronic (5) Influenza B Status: Acute Discharge Summary Discharge Physical Exam Allergies: Coded Allergies: sumatriptan (Verified Allergy, Unknown, Anaphylaxis, 11/07/19) Vitals & I&Os Vital Signs Date Time Temp Pulse Resp B/P (MAP) Pulse Ox O2 Delivery O2 Flow Rate FiO2 03/17/20 16:29 03/17/20 14:40 85 94 3.00 89 03/17/20 10:04 High Flow N/C 03/17/20 08:34 35.3 20 General Appearance: No Apparent Distress, WD/WN Cardiovascular: Regular Rate, Rhythm, No Murmur Gastrointestinal: Normal Bowel Sounds, Non Tender, Soft Neurologic/Psychiatric: Alert, Oriented x3 Hospital Course Patient was admitted with acute hypoxic respiratory failure due to COVID-19. She was treated with Decadron, convalescent plasma, and Remdesivir. After initially needing BiPAP she did well and was able to be titrated off of oxygen completely prior to discharge. She was discharged home in stable and improved condition to follow-up with Dr Fuentes. Labs (last 24 hrs) Microbiology 03/21/20 MRSA Screen - Final, Complete MRSA not isolated 03/11/20 Urine Culture - Final, Complete 3 or more isolates 03/11/20 Blood Culture - Final, Complete No growth Patient resulted labs reviewed. Pending Labs Imaging: Reviewed Imaging Report Discussion & Recommendations Discharge Planning: >30 minutes discharge planning Discharge Home Medications: Active Scripts Active Decadron (Dexamethasone) 6 Mg Tablet 6 Mg PO DAILY Reported Tums X-Str (Calcium Carbonate) 300 Mg Tab.chew 300-600 Mg PO PRN PRN Ibuprofen 200 Mg Tablet 600 Mg PO Q8H PRN Tylenol Extra Strength (Acetaminophen) 500 Mg Tablet 1,000 Mg PO Q8H PRN Citalopram HBr (Citalopram Hydrobromide) 20 Mg Tablet 20 Mg PO HS Hydroxyzine Pamoate 25 Mg Capsule 25 Mg PO HS Instructions to patient/family Please see electronic discharge instructions given to patient. Clinical Quality Measures DVT/VTE Risk/Contraindication: Risk Factor Score Per Nursin RFS Level Per Nursing on Admit: 2=Moderate Copy Copies To 1: KRISTI FUENTES MD, KATELYN M MD Mar 17, 2020 12:14
--- NOTE | 2020-03-17 14:45 | NUR ---
Pt resting with eyes closed. Tree Specialist did not disturb pt's rest, but wrote a supportive note on the patient's whiteboard. Tree Specialist will follow up as able.
--- NOTE | 2020-03-17 14:54 | NUR ---
pt was on room air for 30 minutes. pt was then walked for 6 minutes. pt did not drop o2 saturation below 88%. pt does not need o2. Addendum: 03/17/20 at 1455 by LISA STROUD RT Amended: Links added.
== END 2020-03-17 16:32 | disposition home or self-care (01) | DRG 871 ==
LOC: EDUNIT# 16:32 → ER 16:34 → EDLOC 17:35 → 4TH 17:35 → ICU 03-14 05:24 → 4TH 03-15 14:45
PROVIDERS: ADMIT Internal Medicine; ATTEND Internal Medicine
PROC: XW033E5 Introduction of Remdesivir Anti-infective into Peripheral Vein, Percutaneous Approach, New Technology Group 5 (ICD-10-PCS; principal; 2020-03-11)
PROC: XW13325 Transfusion of Convalescent Plasma (Nonautologous) into Peripheral Vein, Percutaneous Approach, New Technology Group 5 (ICD-10-PCS; 2020-03-12)
PROC: 5A09457 Assistance with Respiratory Ventilation, 24-96 Consecutive Hours, Continuous Positive Airway Pressure (ICD-10-PCS; 2020-03-14)
DX: A41.89 Other specified sepsis (principal); U07.1 COVID-19; J96.00 Acute respiratory failure, unspecified whether with hypoxia or hypercapnia; J10.1 Influenza due to other identified influenza virus with other respiratory manifestations; D72.810 Lymphocytopenia; R00.1 Bradycardia, unspecified; E66.9 Obesity, unspecified; E87.6 Hypokalemia; F41.9 Anxiety disorder, unspecified; F40.240 Claustrophobia; Z68.34 Body mass index [BMI] 34.0-34.9, adult
CPT/HCPCS: 36415; 71045; 80053; 81000; 82805; 83605; 83735; 83880; 84100; 84132; 84145; 84703; 85025; 85379; 85610; 85730; 86141; 86900; 86901; 87040; 87081; 87088; 87635; 87804; 94640; 94660; 94664; 94760; 94761; 96361; 96374; 96375

== ENCOUNTER 2020-04-02 10:25 | Emergency (ER) | payer OTHER ==
[~2020-04-02] VITALS: Ht 165.1 cm; Wt 90.7 kg
[~2020-04-02 10:25] MED LIST changes: +ACET-2267 PO; +CALC-870 PO; +CITA20TA9 PO; +DEXA6TAB6 PO; +HYDR-3781 PO; +IBUP-2473 PO
--- NOTE | 2020-04-02 11:26 | ED Respiratory ---
General Chief Complaint: Respiratory Problems Stated Complaint: SOB Nursing Triage Note: PT AMB TO [facility] WITH COMPLAINT OF SOA. PT STATES SHE RETURNED TO WORK TODAY AFTER BEING COVID +. STATES SHE GOT SOA AND USED HER ALBUTEROL INHALER X4 WITHOUTH RELIEF. STATES HER SOA IS BETTER AFTER SITTING FOR A LITTLE BIT. Source: patient Exam Limitations: no limitations History of Present Illness Date Seen by Provider: Apr 02, 2020 Time Seen by Provider: 10:51 Initial Comments Patient presents ER by private conveyance from work where she complains that she started feeling short of breath with exertion. This is her first day back. She was diagnosed 22 days ago with influenza B and COVID-19. She was hospitalized but not require intubation. She has a history of asthma and used her albuterol inhaler a couple times this morning with no benefit to her symptoms. She does not feel wheezy nor is having stridor or difficulty swallowing. She says she put her finger in a pulse ox and it came back 92%. She is not having fevers chills nausea vomiting diarrhea or productive cough. She states she does have a history of anxiety however she does not feel that that was the case this morning. She did just recently complete a course of steroids a few days ago. Allergies and Home Medications Allergies Coded Allergies: sumatriptan (Verified Allergy, Unknown, Anaphylaxis, 11/07/19) Home Medications Acetaminophen 500 Mg Tablet, 1,000 MG PO Q8H PRN for PAIN-MILD (1-4), (Reported) Calcium Carbonate 300 Mg Tab.chew, 300-600 MG PO PRN PRN for HEARTBURN, (Reported) Citalopram Hydrobromide 20 Mg Tablet, 20 MG PO HS, (Reported) Dexamethasone 6 Mg Tablet, 6 MG PO DAILY Prescribed by: ONHEMY PBALO on 03/17/20 1212 Hydroxyzine Pamoate 25 Mg Capsule, 25 MG PO HS, (Reported) Ibuprofen 200 Mg Tablet, 600 MG PO Q8H PRN for PAIN-MILD (1-4), (Reported) Patient Home Medication List Home Medication List Reviewed: Yes Review of Systems Review of Systems Constitutional: No chills, No diaphoresis EENTM: No ear discharge, No ear pain Respiratory: see HPI; No cough; short of breath Cardiovascular: No chest pain, No edema, No Hx of Intervention Gastrointestinal: No abdominal pain, No nausea, No vomiting Genitourinary: No discharge, No dysuria Musculoskeletal: No back pain, No joint pain All Other Systems Reviewed Negative Unless Noted: Yes Past Fxzfkse-Talqbm-Aijkkc Hx Patient Social History Alcohol Use: Denies Use Recreational Drug Use: No Smoking Status: Never a Smoker 2nd Hand Smoke Exposure: No Recent Foreign Travel: No Contact w/Someone Who Travel: No Recent Infectious Disease Expo: No Recent Hopitalizations: No Immunizations Up To Date Tetanus Booster (TDap): Less than 5yrs PED Vaccines UTD: Yes Date of Influenza Vaccine: Feb 03, 2020 Seasonal Allergies Seasonal Allergies: No Past Medical History Surgeries: Yes (D&C) Hysterectomy Respiratory: No Cardiac: No Neurological: 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 oz. 63.504122ux; 33.00 BMI Method:Stated General Appearance: WD/WN, no apparent distress Eyes: Bilateral Eye Normal Inspection, Bilateral Eye PERRL, Bilateral Eye EOMI HEENT: PERRL/EOMI, normal ENT inspection, pharynx normal Neck: full range of motion, supple, normal inspection Respiratory: lungs clear, normal breath sounds, no respiratory distress, no accessory muscle use Cardiovascular: normal peripheral pulses, regular rate, rhythm Gastrointestinal: normal bowel sounds, non tender Neurologic/Psychiatric: alert, normal mood/affect, oriented x 3 Progress/Results/Core Measures Suspected Sepsis Recent Fever Within 48 Hours: No Infection Criteria Present: None New/Unexplained Altered Menta: No Sepsis Screen: No Definite Risk SIRS Temperature: Pulse: 90 Respiratory Rate: 20 Laboratory Tests 04/02/20 12:07: White Blood Count 9.4 Blood Pressure 121 /77 Mean: 92 Laboratory Tests 04/02/20 12:07: Creatinine 0.87, Platelet Count 198, Total Bilirubin 0.4 Results/Orders Lab Results Laboratory Tests Test 04/02/20 11:33 04/02/20 12:07 Range/Units Blood Gas Puncture Site UNK Blood Gas Patient Temperature 35.3 Arterial Blood pH 7.45 H 7.37-7.43 Arterial Blood Partial Pressure CO2 32 L 35-45 MMHG Arterial Blood Partial Pressure O2 97 H 79-93 MMHG Arterial Blood HCO3 23 23-27 MMOL/L Arterial Blood Total CO2 23.6 21.0-31.0 MMOL/L Arterial Blood Oxygen Saturation 98 94-100 % Arterial Blood Base Excess -1.2 -2.5-2.5 MMOL/L Louis Test UNK Blood Gas Ventilator Setting NO Blood Gas Inspired Oxygen N/A White Blood Count 9.4 4.3-11.0 10^3/uL Red Blood Count 4.40 3.80-5.11 10^6/uL Hemoglobin 13.1 11.5-16.0 g/dL Hematocrit 42 35-52 % Mean Corpuscular Volume 95 80-99 fL Mean Corpuscular Hemoglobin 30 25-34 pg Mean Corpuscular Hemoglobin Concent 31 L 32-36 g/dL Red Cell Distribution Width 14.6 H 10.0-14.5 % Platelet Count 198 130-400 10^3/uL Mean Platelet Volume 9.8 9.0-12.2 fL Immature Granulocyte % (Auto) 1 % Neutrophils (%) (Auto) 65 42-75 % Lymphocytes (%) (Auto) 25 12-44 % Monocytes (%) (Auto) 8 0-12 % Eosinophils (%) (Auto) 1 0-10 % Basophils (%) (Auto) 0 0-10 % Neutrophils # (Auto) 6.1 1.8-7.8 10^3/uL Lymphocytes # (Auto) 2.3 1.0-4.0 10^3/uL Monocytes # (Auto) 0.8 0.0-1.0 10^3/uL Eosinophils # (Auto) 0.1 0.0-0.3 10^3/uL Basophils # (Auto) 0.0 0.0-0.1 10^3/uL Immature Granulocyte # (Auto) 0.1 0.0-0.1 10^3/uL D-Dimer 0.55 H 0.00-0.49 UG/ML Sodium Level 136 135-145 MMOL/L Potassium Level 4.1 3.6-5.0 MMOL/L Chloride Level 103 98-107 MMOL/L Carbon Dioxide Level 24 21-32 MMOL/L Anion Gap 9 5-14 MMOL/L Blood Urea Nitrogen 19 H 7-18 MG/DL Creatinine 0.87 0.60-1.30 MG/DL Estimat Glomerular Filtration Rate > 60 BUN/Creatinine Ratio 22 Glucose Level 78 70-105 MG/DL Calcium Level 8.3 L 8.5-10.1 MG/DL Corrected Calcium 8.6 8.5-10.1 MG/DL Total Bilirubin 0.4 0.1-1.0 MG/DL Aspartate Amino Transf (AST/SGOT) 29 5-34 U/L Alanine Aminotransferase (ALT/SGPT) 47 0-55 U/L Alkaline Phosphatase 48 40-136 U/L C-Reactive Protein High Sensitivity 2.61 H 0.00-0.50 MG/DL Total Protein 6.5 6.4-8.2 GM/DL Albumin 3.6 3.2-4.5 GM/DL My Orders Orders - MADYSON CID Cbc With Automated Diff (04/02/20 11:13) Comprehensive Metabolic Panel (04/02/20 11:13) Hs C Reactive Protein (04/02/20 11:13) Arterial Blood Gas (04/02/20 11:13) Chest Pa/Lat (2 View) (04/02/20 11:13) Fibrin Degradation Products (04/02/20 11:13) Ed Iv/Invasive Line Start (04/02/20 13:25) Ns Iv 1000 Ml (Sodium Chloride 0.9%) (04/02/20 13:30) Ct Angio Chest W (04/02/20 13:25) Iohexol Injection (Omnipaque 350 Mg/Ml 1 (04/02/20 13:45) Received Contrast (Hold Metformin- Contr (04/02/20 13:45) Sodium Chloride Flush (Catheter Flush Sy (04/02/20 13:45) Ns (Ivpb) (Sodium Chloride 0.9% Ivpb Bag (04/02/20 13:45) Medications Given in ED Current Medications Medications Dose Ordered Sig/Michell Route Start Time Stop Time Status Last Admin Dose Admin Iohexol 100 ml ONCE ONCE IV 04/02/20 13:45 04/02/20 13:46 DC 12/17/20 14:19 77 ML Sodium Chloride 100 ml ONCE ONCE IV 04/02/20 13:45 04/02/20 13:46 DC 04/02/20 14:19 80 ML Vital Signs/I&O 04/02/20 10:46 Temp 35.6 Pulse 90 Resp 20 B/P (MAP) 121/77 (92) Pulse Ox 96 O2 Delivery Room Air Capillary Refill : Less Than 3 Seconds Blood Pressure Mean: 92 Progress Note #1: Time: 11:24 Progress Note Plan to get some labs including a D-dimer chest x-ray and ABG. Anxiety is in the differential as well as pulmonary embolism, reaccumulated pneumonia. Covid test is probably not useful at this time. Progress Note #2: Time: 13:23 Progress Note She is not particularly hypoxic however her ABG does demonstrate she is blowing off her CO2 which can be seen with pain which she is not endorsing, anxiety which she has a strong history of as well as possibly a pulmonary embolism that is still subacute. We have discussed this with her and she would like to pursue a CT angiogram. We discussed the risks and benefits. If it is negative were going to recommend she stay off for a couple days, talk to her primary care doc tor maybe even consider some support group/family time. Diagnostic Imaging Diagonstic Imaging: Xray Plain Films/CT/US/NM/MRI: chest Comments [facility]. [place], [place] NAME: SHER THOMPSON [facility] REC#: [id number] PT STATUS: REG ER : 1985 PHYSICIAN: MADYSON CID MD ADMIT DATE: 04/02/20/ER Signed Date of Exam:04/02/20 CHEST PA/LAT (2 VIEW) INDICATION: Shortness of air. COMPARISON: March 16, 2020. TECHNIQUE: Two radiographs of the chest dated April 02, 2020. FINDINGS: The cardiac silhouette is within normal limits in size. No significant pulmonary vascular congestion. Improved aeration of the lungs with the lungs now appearing clear with interval resolution of previously noted bibasilar infiltrates. No pleural effusion. No pneumothorax. No acute osseous abnormality. IMPRESSION: No acute cardiopulmonary abnormality with interval clearance of previously noted bibasilar pulmonary infiltrates with improved aeration of the lungs. Dictated by: Dictated on workstation # [id number] Dict: 04/02/20 1140 Trans: 04/02/20 1240 AS6 [id number] Interpreted by: KAREEM LACKEY MD Electronically signed by: KAREEM LACKEY MD 04/02/20 1240 Reviewed: Reviewed by Me Diagonstic Imaging: CT (Angiogram) Plain Films/CT/US/NM/MRI: chest Comments NAME: SHER THOMPSON [facility] REC#: [id number] PT STATUS: REG ER : 1985 PHYSICIAN: MADYSON CID MD ADMIT DATE: 04/02/20/ER Draft Date of Exam:04/02/20 CT ANGIO CHEST W PROCEDURE: CT angiography of the chest with contrast. TECHNIQUE: Multiple contiguous axial images were obtained through the chest after uneventful bolus administration of intravenous contrast. 3D reconstructed CTA MIP acquisitions were also performed. Auto Exposure Controls were utilized during the CT exam to meet ALARA standards for radiation dose reduction. INDICATION: Sudden onset of shortness of breath. COMPARISON: No prior studies are available for comparison. FINDINGS: Evaluation of the pulmonary arterial system is without evidence of thromboembolism. No filling defects are seen within central, lobar, or segmental branches. Thoracic aorta is normal in caliber. No dissection is seen. There is no pericardial or pleural fluid. Parenchymal evaluation shows minimal scarring or atelectasis in the right middle lobe and lingula. No infiltrates are seen. No nodules or masses are detected. Upper abdomen is unremarkable. IMPRESSION: Essentially unremarkable CT angiogram of the chest. There is no evidence of pulmonary embolism. Dictated on workstation # [id number] Dict: 04/02/20 1425 Trans: 04/02/20 1429 AS6 [id number] Interpreted by: STAS IBANEZ MD Electronically signed by: Reviewed: Reviewed by Me Departure Impression Primary Impression: Anxiety Additional Impression: Dyspnea Qualified Codes: R06.00 - Dyspnea, unspecified Disposition: 01 HOME, SELF-CARE Condition: Stable Departure-Patient Inst. Decision time for Depature: 14:39 Referrals: NITZA FUENTES MD (PCP/Family) Primary Care Physician Patient Instructions: Anxiety, Adult ED Add. Discharge Instructions: Drink plenty of fluids, stay active and get some rest. Return to work on Monday. Follow-up with your primary care provider if you are having worsening symptoms or need further help managing symptoms. All discharge instructions reviewed with patient and/or family. Voiced understanding. Work/School Note: Work Release Form Date Seen in the Emergency Department: Apr 02, 2020 Return to Work: Apr 06, 2020 Restrictions: No Restrictions Copy Copies To 1: NITZA FUENTES MD, TITUS J Apr 02, 2020 11:26
[2020-04-02 11:39] LABS: ABG BASE EXCESS -1.2 MMOL/L (-2.5-2.5); ABG OXYGEN SATURATION 98 % (94-100); ABG PCO2 32 MMHG (35-45); ABG PH 7.45 (7.37-7.43); ABG PO2 97 MMHG (79-93); ABG TCO2 23.6 MMOL/L (21.0-31.0); PATIENT TEMP 35.3; VENTILATOR NO
--- NOTE | 2020-04-02 11:45 | Diagnostic Imaging Report ---
INDICATION: Shortness of air. COMPARISON: March 16, 2020. TECHNIQUE: Two radiographs of the chest dated April 02, 2020. FINDINGS: The cardiac silhouette is within normal limits in size. No significant pulmonary vascular congestion. Improved aeration of the lungs with the lungs now appearing clear with interval resolution of previously noted bibasilar infiltrates. No pleural effusion. No pneumothorax. No acute osseous abnormality. IMPRESSION: No acute cardiopulmonary abnormality with interval clearance of previously noted bibasilar pulmonary infiltrates with improved aeration of the lungs. Dictated by: Dictated on workstation # [id number]
[2020-04-02 12:38] LABS: BASOPHILS % (AUTO) 0 % (0-10); EOSINOPHILS # (AUTO) 0.1 10^3/uL (0.0-0.3); EOSINOPHILS % (AUTO) 1 % (0-10); HEMATOCRIT 42 % (35-52); HEMOGLOBIN 13.1 g/dL (11.5-16.0); LYMPHOCYTES # (AUTO) 2.3 10^3/uL (1.0-4.0); LYMPHOCYTES % (AUTO) 25 % (12-44); MEAN CORPUSCULAR HEMOGLOBIN 30 pg (25-34); MEAN CORPUSCULAR HGB CONC 31 g/dL (32-36); MEAN CORPUSCULAR VOLUME 95 fL (80-99); MEAN PLATELET VOLUME 9.8 fL (9.0-12.2); MONOCYTES # (AUTO) 0.8 10^3/uL (0.0-1.0); MONOCYTES % (AUTO) 8 % (0-12); NEUTROPHILS # (AUTO) 6.1 10^3/uL (1.8-7.8); NEUTROPHILS % (AUTO) 65 % (42-75); PLATELET COUNT 198 10^3/uL (130-400); WHITE BLOOD COUNT 9.4 10^3/uL (4.3-11.0)
[2020-04-02 12:47] LABS: ALBUMIN 3.6 GM/DL (3.2-4.5); CHLORIDE 103 MMOL/L (98-107); POTASSIUM 4.1 MMOL/L (3.6-5.0); SODIUM 136 MMOL/L (135-145)
[2020-04-02 12:48] LABS: CALCIUM 8.3 MG/DL (8.5-10.1)
[2020-04-02 12:49] LABS: GLUCOSE 78 MG/DL (70-105)
[2020-04-02 12:50] LABS: TOTAL PROTEIN 6.5 GM/DL (6.4-8.2)
[2020-04-02 12:51] LABS: BILIRUBIN,TOTAL 0.4 MG/DL (0.1-1.0); CARBON DIOXIDE 24 MMOL/L (21-32)
[2020-04-02 12:53] LABS: ALKALINE PHOSPHATASE 48 U/L (40-136); CREATININE SERUM 0.87 MG/DL (0.60-1.30); GFR ESTIMATED > 60
[2020-04-02 12:54] LABS: BUN/CREATININE RATIO 22
[2020-04-02 12:56] LABS: ALANINE AMINOTRANSFERASE 47 U/L (0-55)
[2020-04-02] MEDS ORDERED: NS IV 1000 ML 1,000 ML IV SCH (13:30)
[2020-04-02] MEDS ORDERED: NS 100 ML (IVPB) BAG IV ONE (13:45)
[2020-04-02] MEDS ORDERED: HOLD METFORMIN - RECEIVED CONTRAST 20 ML VIAL IV SCH (13:45)
[2020-04-02] MEDS ORDERED: CATHETER FLUSH 10 ML SYR IV PRN (13:45)
[2020-04-02] MEDS ORDERED: IOHEXOL 350 MG/ML 100 ML (OMNIPAQUE 350) VIAL IV ONE (13:45)
--- NOTE | 2020-04-02 14:30 | Diagnostic Imaging Report ---
PROCEDURE: CT angiography of the chest with contrast. TECHNIQUE: Multiple contiguous axial images were obtained through the chest after uneventful bolus administration of intravenous contrast. 3D reconstructed CTA MIP acquisitions were also performed. Auto Exposure Controls were utilized during the CT exam to meet ALARA standards for radiation dose reduction. INDICATION: Sudden onset of shortness of breath. COMPARISON: No prior studies are available for comparison. FINDINGS: Evaluation of the pulmonary arterial system is without evidence of thromboembolism. No filling defects are seen within central, lobar, or segmental branches. Thoracic aorta is normal in caliber. No dissection is seen. There is no pericardial or pleural fluid. Parenchymal evaluation shows minimal scarring or atelectasis in the right middle lobe and lingula. No infiltrates are seen. No nodules or masses are detected. Upper abdomen is unremarkable. IMPRESSION: Essentially unremarkable CT angiogram of the chest. There is no evidence of pulmonary embolism. Dictated by: Dictated on workstation # [id number]
[2020-04-02 14:48] VITALS: BP 118/79
== END 2020-04-02 14:48 | disposition home or self-care (01) ==
LOC: EDUNIT# 10:25 → ER 10:27
DX: F41.9 Anxiety disorder, unspecified (principal); R06.00 Dyspnea, unspecified; Z82.49 Family history of ischemic heart disease and other diseases of the circulatory system; Z83.3 Family history of diabetes mellitus; Z88.8 Allergy status to other drugs, medicaments and biological substances
CPT/HCPCS: 36415; 71046; 71275; 80053; 82805; 85025; 85379; 86141